=== PATIENT | male | born 1965 | race Two or more races ===

== ENCOUNTER 2017-11-23 18:04 | Inpatient (IN) | payer OTHER, SELFPAY ==
[~2017-11-23] VITALS: Ht 177.8 cm; Wt 144.5 kg
[2017-11-23] MEDS ORDERED: SODIUM CHLORIDE FLUSH 10ML SYR IVF ONE (19:00)
[2017-11-23] MEDS ORDERED: METO-99 PO (19:06)
[2017-11-23] MEDS ORDERED: FURO20TA3 PO (19:06)
[2017-11-23] MEDS ORDERED: PRED20TA PO (19:06)
[2017-11-23] MEDS ORDERED: ENAL20TA PO (19:06)
[2017-11-23 19:07] LABS: INTERNATIONAL NORMALIZED RATIO 1.32 (0.93-1.1); PROTHROMBIN TIME 13.7 Seconds (9.6-11.5)
[2017-11-23 19:13] LABS: TROPONIN I < 0.015 ng/mL (0.000-0.045)
[2017-11-23 19:24] LABS: BASOPHILS # (AUTO) 0.02 x10^3/uL (0-0.1); BASOPHILS % (AUTO) 0 % (0-1); EOSINOPHILS % (AUTO) 0 % (1-7); LYMPHOCYTES # (AUTO) 0.54 x10^3/uL (1-3.4); LYMPHOCYTES % (AUTO) 5 % (22-44); MD SCAN; MEAN CORPUSCULAR HEMOGLOBIN 35.5 pg (27.5-34.5); MEAN CORPUSCULAR HGB CONC 34.7 g/dL (33.2-36.2); MEAN CORPUSCULAR VOLUME 102.2 fL (81-97); MEAN PLATELET VOLUME 9.4 fL (7.4-10.4); MONOCYTES # (AUTO) 0.69 x10^3/uL (0.2-0.8); MONOCYTES % (AUTO) 7 % (2-9); NEUTROPHILS # (AUTO) 9.41 x10^3/uL (1.8-6.8); NEUTROPHILS % (AUTO) 88 % (42-75); PLATELET COUNT 94 x10^3/uL (130-400); RED BLOOD COUNT 4.14 x10^6/uL (4.38-5.82); RED CELL DISTRIBUTION WIDTH 15.7 % (9.4-14.8)
[2017-11-23 20:10] LABS: ALANINE AMINOTRANSFERASE 153 U/L (12-78); ALBUMIN 3.4 g/dL (3.4-5.0); CHLORIDE 78 mmol/L (98-107); CREATININE 1.11 mg/dL (0.7-1.3)
[2017-11-23 20:12] LABS: ALKALINE PHOSPHATASE 124 U/L (45-117); BILIRUBIN,TOTAL 4.2 mg/dL (0.2-1.0); TOTAL PROTEIN 7.8 g/dL (6.4-8.2)
[2017-11-23 20:21] LABS: ANION GAP 19 mmol/L (5-15)
[2017-11-23] MEDS ORDERED: SODIUM CHLORIDE 0.9% 1,000 ML IV ONE ×2 (20:26→20:51)
[2017-11-23] MEDS ORDERED: SODIUM CHLORIDE FLUSH 10ML SYR IVF PRN (21:00)
[2017-11-23] MEDS ORDERED: LORazepam 2 MG/ML, 1ML IVPush ONE (21:00)
[2017-11-23] MEDS ORDERED: LORazepam 2 MG/ML, 1ML ONE (21:05)
[2017-11-23] MEDS ORDERED: SODIUM CHLORIDE 0.9% 1,000 ML IV SCH (21:54)
[2017-11-23] MEDS ORDERED: HEPARIN 5,000 UNITS/ML, 1ML SQ SCH (22:00)
[2017-11-23] MEDS ORDERED: ONDANSETRON 2MG/ML, 2ML IVPush PRN (22:00)
[2017-11-23] MEDS ORDERED: BISACODYL 10 MG SUPP PR PRN (22:00)
[2017-11-23] MEDS ORDERED: POLYETHYLENE GLYCOL 17 GM PACKET PO PRN (22:00)
[2017-11-23 22:50] LABS: FOLATE LEVEL 4.9 ng/mL (3.1-17.5)
[2017-11-23 23:18] VITALS: BP 151/99
[2017-11-24 00:18] LABS: MICROSCOPIC INDICATED
[2017-11-24 00:20] LABS: SODIUM,URINE RANDOM 22 mmol/L
[2017-11-24 00:29] LABS: CULTURE INDICATED? NO
[2017-11-24 00:34] LABS: OSMOLALITY,URINE 385 mOsm/kg (500-850)
[2017-11-24 02:57] LABS: CLOSTRIDIUM DIFFICILE ANTIGEN POSITIVE; CLOSTRIDIUM DIFFICILE TOXIN NEGATIVE (Negative)
[2017-11-24 03:18] LABS: MEAN CORPUSCULAR HGB CONC 34.3 g/dL (33.2-36.2); RED CELL DISTRIBUTION WIDTH 15.8 % (9.4-14.8)
[2017-11-24 04:02] LABS: MEAN PLATELET VOLUME 9.6 fL (7.4-10.4); PLATELET COUNT 98 x10^3/uL (130-400)
[2017-11-24 04:03] LABS: BASOPHILS # (AUTO) 0.02 x10^3/uL (0-0.1); BASOPHILS % (AUTO) 0 % (0-1); EOSINOPHILS % (AUTO) 0 % (1-7); LYMPHOCYTES # (AUTO) 0.74 x10^3/uL (1-3.4); LYMPHOCYTES % (AUTO) 6 % (22-44); MD SCAN; MONOCYTES # (AUTO) 1.03 x10^3/uL (0.2-0.8); MONOCYTES % (AUTO) 9 % (2-9); NEUTROPHILS # (AUTO) 10.07 x10^3/uL (1.8-6.8); NEUTROPHILS % (AUTO) 85 % (42-75)
[2017-11-24] MEDS: GUAIFENESIN/DM 100-10MG, 5ML UDC PO PRN ×4 (04:45→21:41)
[2017-11-24 04:55] VITALS: BP 130/80
[2017-11-24] MEDS: SENNA/DOCUSATE TABLET PO SCH (09:00)
[2017-11-24] MEDS: ENALAPRIL 20MG TABLET PO SCH (09:26)
[2017-11-24] MEDS: metroNIDAZOLE 500 MG TABLET PO SCH ×3 (09:26→21:41)
[2017-11-24 10:17] LABS: ALANINE AMINOTRANSFERASE 151 U/L (12-78); ALBUMIN 3.5 g/dL (3.4-5.0); ANION GAP 17 mmol/L (5-15); CALCIUM 8.2 mg/dL (8.5-10.1); CHLORIDE 79 mmol/L (98-107); CREATININE 1.56 mg/dL (0.7-1.3)
[2017-11-24 10:24] LABS: ALKALINE PHOSPHATASE 120 U/L (45-117); BILIRUBIN,TOTAL 5.4 mg/dL (0.2-1.0); TOTAL PROTEIN 7.6 g/dL (6.4-8.2)
[2017-11-24 13:59] VITALS: BP 148/83
[2017-11-24] MEDS: LORazepam 0.5MG TABLET PO PRN ×2 (15:11→21:41)
[2017-11-24] MEDS: POTASSIUM CHLORIDE 20 MEQ, MAGNESIUM SULFATE 1 GM, THIAMINE 100 MG, FOLIC ACID 1 MG, MV... IV SCH (17:00)
[2017-11-24 18:47] VITALS: BP 161/78
[2017-11-25] MEDS ORDERED: AMOX-291 PO (01:38)
[2017-11-25] MEDS ORDERED: CEPH-368 PO (01:38)
[2017-11-25 04:01] VITALS: BP 133/76
[2017-11-25] MEDS: SODIUM CHLORIDE 0.9% 1,000 ML IV SCH ×3 (04:09→20:00)
[2017-11-25 06:40] LABS: ANION GAP 12 mmol/L (5-15); CALCIUM 8.3 mg/dL (8.5-10.1); CHLORIDE 84 mmol/L (98-107)
[2017-11-25 06:45] LABS: ALANINE AMINOTRANSFERASE 141 U/L (12-78); ALKALINE PHOSPHATASE 105 U/L (45-117); BILIRUBIN,TOTAL 7.6 mg/dL (0.2-1.0); CREATININE 1.26 mg/dL (0.7-1.3); TOTAL PROTEIN 6.8 g/dL (6.4-8.2)
[2017-11-25 06:59] LABS: MEAN CORPUSCULAR HEMOGLOBIN 35.2 pg (27.5-34.5); MEAN CORPUSCULAR HGB CONC 34.4 g/dL (33.2-36.2); MEAN CORPUSCULAR VOLUME 102.2 fL (81-97); MEAN PLATELET VOLUME 10.5 fL (7.4-10.4); PLATELET COUNT 63 x10^3/uL (130-400); RED BLOOD COUNT 3.72 x10^6/uL (4.38-5.82); RED CELL DISTRIBUTION WIDTH 16.1 % (9.4-14.8)
[2017-11-25] MEDS: SENNA/DOCUSATE TABLET PO SCH (07:29)
[2017-11-25 07:36] LABS: BASOPHILS % (AUTO) 0 % (0-1); EOSINOPHILS % (AUTO) 0 % (1-7); LYMPHOCYTES # (AUTO) 0.64 x10^3/uL (1-3.4); LYMPHOCYTES % (AUTO) 7 % (22-44); MD SCAN; MONOCYTES # (AUTO) 0.79 x10^3/uL (0.2-0.8); MONOCYTES % (AUTO) 8 % (2-9); NEUTROPHILS # (AUTO) 8.25 x10^3/uL (1.8-6.8); NEUTROPHILS % (AUTO) 85 % (42-75)
[2017-11-25 07:59] VITALS: BP 130/82
[2017-11-25] MEDS: metroNIDAZOLE 500 MG TABLET PO SCH ×3 (09:21→21:24)
[2017-11-25] MEDS: ENALAPRIL 20MG TABLET PO SCH (09:21)
[2017-11-25 09:36] LABS: INTERNATIONAL NORMALIZED RATIO 1.56 (0.93-1.1); PROTHROMBIN TIME 16.1 Seconds (9.6-11.5)
[2017-11-25 13:00] VITALS: BP 139/80
[2017-11-25] MEDS ORDERED: LORazepam 1MG TABLET ONE (15:30)
[2017-11-25] MEDS: LORazepam 0.5MG TABLET PO PRN (15:32)
[2017-11-25] MEDS: GUAIFENESIN/DM 100-10MG, 5ML UDC PO PRN ×2 (17:03→21:24)
[2017-11-25 20:58] VITALS: BP 149/85
[2017-11-25] MEDS: POTASSIUM CHLORIDE 20 MEQ, MAGNESIUM SULFATE 1 GM, THIAMINE 100 MG, FOLIC ACID 1 MG, MV... IV SCH (21:24)
[2017-11-26] MEDS: LORazepam 0.5MG TABLET PO PRN ×2 (00:33→11:05)
[2017-11-26 02:29] VITALS: BP 156/82
[2017-11-26 05:23] LABS: MEAN CORPUSCULAR HGB CONC 34.8 g/dL (33.2-36.2); MEAN CORPUSCULAR VOLUME 103.5 fL (81-97); RED BLOOD COUNT 3.71 x10^6/uL (4.38-5.82); RED CELL DISTRIBUTION WIDTH 16.3 % (9.4-14.8)
[2017-11-26 05:57] LABS: BASOPHILS # (AUTO) 0.01 x10^3/uL (0-0.1); BASOPHILS % (AUTO) 0 % (0-1); EOSINOPHILS # (AUTO) 0.01 x10^3/uL (0-0.4); EOSINOPHILS % (AUTO) 0 % (1-7); LYMPHOCYTES # (AUTO) 0.32 x10^3/uL (1-3.4); LYMPHOCYTES % (AUTO) 4 % (22-44); MD SCAN; MEAN PLATELET VOLUME 10.2 fL (7.4-10.4); MONOCYTES # (AUTO) 0.83 x10^3/uL (0.2-0.8); MONOCYTES % (AUTO) 10 % (2-9); NEUTROPHILS # (AUTO) 7.28 x10^3/uL (1.8-6.8); NEUTROPHILS % (AUTO) 86 % (42-75); PLATELET COUNT 60 x10^3/uL (130-400)
[2017-11-26] MEDS ORDERED: SODIUM CHLORIDE 0.9% 1,000 ML IV SCH ×2 (06:00→21:54)
[2017-11-26 06:38] LABS: ALANINE AMINOTRANSFERASE 155 U/L (12-78); ALBUMIN 3.2 g/dL (3.4-5.0); ALKALINE PHOSPHATASE 119 U/L (45-117); ANION GAP 10 mmol/L (5-15); BILIRUBIN,TOTAL 9.7 mg/dL (0.2-1.0); CALCIUM 9.1 mg/dL (8.5-10.1); CHLORIDE 87 mmol/L (98-107); CREATININE 1.06 mg/dL (0.7-1.3); TOTAL PROTEIN 6.9 g/dL (6.4-8.2)
[2017-11-26] MEDS: ENALAPRIL 20MG TABLET PO SCH (08:29)
[2017-11-26] MEDS: metroNIDAZOLE 500 MG TABLET PO SCH (08:29)
[2017-11-26 08:31] VITALS: BP 148/82
[2017-11-26] MEDS: ENOXAPARIN 40 MG/0.4 ML SQ SCH (11:05)
[2017-11-26 13:50] VITALS: BP 167/77
[2017-11-26 16:32] LABS: T4 (THYROXINE) 4.3 mcg/dL (4.5-12.1)
[2017-11-26 20:11] VITALS: BP 130/84
[2017-11-26] MEDS: RIFAXIMIN 550 MG TABLET PO SCH (21:31)
[2017-11-26] MEDS: POTASSIUM CHLORIDE 20 MEQ, MAGNESIUM SULFATE 1 GM, THIAMINE 100 MG, FOLIC ACID 1 MG, MV... IV SCH (21:32)
[2017-11-27 01:12] VITALS: BP 149/85
[2017-11-27 05:10] LABS: INTERNATIONAL NORMALIZED RATIO 1.93 (0.93-1.1); PROTHROMBIN TIME 19.8 Seconds (9.6-11.5)
[2017-11-27 05:11] LABS: MEAN CORPUSCULAR HGB CONC 33.5 g/dL (33.2-36.2); MEAN CORPUSCULAR VOLUME 104.5 fL (81-97); MEAN PLATELET VOLUME 9.5 fL (7.4-10.4); PLATELET COUNT 58 x10^3/uL (130-400); RED BLOOD COUNT 3.68 x10^6/uL (4.38-5.82); RED CELL DISTRIBUTION WIDTH 16.5 % (9.4-14.8)
[2017-11-27 05:17] LABS: CHLORIDE 90 mmol/L (98-107)
[2017-11-27 05:25] LABS: ALANINE AMINOTRANSFERASE 145 U/L (12-78); ALKALINE PHOSPHATASE 127 U/L (45-117); ANION GAP 7 mmol/L (5-15); BILIRUBIN,TOTAL 10.2 mg/dL (0.2-1.0); CALCIUM 8.2 mg/dL (8.5-10.1); CREATININE 0.93 mg/dL (0.7-1.3); TOTAL PROTEIN 6.6 g/dL (6.4-8.2)
[2017-11-27 05:31] LABS: BASOPHILS # (AUTO) 0.02 x10^3/uL (0-0.1); BASOPHILS % (AUTO) 0 % (0-1); EOSINOPHILS # (AUTO) 0.05 x10^3/uL (0-0.4); EOSINOPHILS % (AUTO) 1 % (1-7); LYMPHOCYTES # (AUTO) 0.67 x10^3/uL (1-3.4); LYMPHOCYTES % (AUTO) 10 % (22-44); MD SCAN; MONOCYTES # (AUTO) 1.02 x10^3/uL (0.2-0.8); MONOCYTES % (AUTO) 15 % (2-9); NEUTROPHILS # (AUTO) 4.87 x10^3/uL (1.8-6.8); NEUTROPHILS % (AUTO) 73 % (42-75)
[2017-11-27 07:11] VITALS: BP 134/70
[2017-11-27] MEDS: RIFAXIMIN 550 MG TABLET PO SCH ×2 (09:22→20:18)
[2017-11-27] MEDS: FOLIC ACID 1 MG TABLET PO SCH (09:22)
[2017-11-27] MEDS: ENALAPRIL 20MG TABLET PO SCH (09:22)
[2017-11-27] MEDS: THIAMINE 100MG TABLET PO SCH (09:22)
[2017-11-27] MEDS: MULTIVITAMIN 1 TABLET PO SCH (09:22)
[2017-11-27] MEDS: ENOXAPARIN 40 MG/0.4 ML SQ SCH (11:19)
[2017-11-27 14:00] VITALS: BP 122/75
[2017-11-27] MEDS ORDERED: LORazepam 1MG TABLET PO PRN ×4 (15:30)
[2017-11-27] MEDS ORDERED: LORazepam 2 MG/ML, 1ML IV PRN ×5 (15:30)
[2017-11-27] MEDS ORDERED: LORazepam 0.5MG TABLET PO PRN (15:30)
[2017-11-27 20:32] VITALS: BP 137/84
[2017-11-28 01:54] VITALS: BP 122/75
[2017-11-28] MEDS: GUAIFENESIN/DM 100-10MG, 5ML UDC PO PRN ×2 (03:26→20:32)
[2017-11-28 04:44] LABS: MEAN CORPUSCULAR HEMOGLOBIN 35.4 pg (27.5-34.5); MEAN CORPUSCULAR HGB CONC 33.8 g/dL (33.2-36.2); MEAN CORPUSCULAR VOLUME 104.6 fL (81-97); MEAN PLATELET VOLUME 9.5 fL (7.4-10.4); PLATELET COUNT 59 x10^3/uL (130-400); RED BLOOD COUNT 3.79 x10^6/uL (4.38-5.82); RED CELL DISTRIBUTION WIDTH 16.7 % (9.4-14.8)
[2017-11-28 04:55] LABS: BASOPHILS # (AUTO) 0.02 x10^3/uL (0-0.1); BASOPHILS % (AUTO) 0 % (0-1); EOSINOPHILS # (AUTO) 0.09 x10^3/uL (0-0.4); EOSINOPHILS % (AUTO) 1 % (1-7); LYMPHOCYTES # (AUTO) 1.03 x10^3/uL (1-3.4); LYMPHOCYTES % (AUTO) 15 % (22-44); MD SCAN; MONOCYTES # (AUTO) 1.24 x10^3/uL (0.2-0.8); MONOCYTES % (AUTO) 18 % (2-9); NEUTROPHILS # (AUTO) 4.56 x10^3/uL (1.8-6.8); NEUTROPHILS % (AUTO) 66 % (42-75)
[2017-11-28 04:59] LABS: ALANINE AMINOTRANSFERASE 132 U/L (12-78); ALBUMIN 2.7 g/dL (3.4-5.0); ANION GAP 8 mmol/L (5-15); CALCIUM 8.1 mg/dL (8.5-10.1); CHLORIDE 92 mmol/L (98-107); CREATININE 0.83 mg/dL (0.7-1.3)
[2017-11-28 05:01] LABS: ALKALINE PHOSPHATASE 133 U/L (45-117); TOTAL PROTEIN 6.4 g/dL (6.4-8.2)
[2017-11-28] MEDS: LEVOTHYROXINE 25 MCG TABLET PO SCH (05:52)
[2017-11-28 09:14] VITALS: BP 148/92
[2017-11-28] MEDS: MULTIVITAMIN 1 TABLET PO SCH (10:30)
[2017-11-28] MEDS: FOLIC ACID 1 MG TABLET PO SCH (10:30)
[2017-11-28] MEDS: THIAMINE 100MG TABLET PO SCH (10:30)
[2017-11-28] MEDS: RIFAXIMIN 550 MG TABLET PO SCH ×2 (10:30→20:06)
[2017-11-28] MEDS: ENALAPRIL 20MG TABLET PO SCH (10:30)
[2017-11-28] MEDS: ENOXAPARIN 40 MG/0.4 ML SQ SCH (10:33)
[2017-11-28 13:49] VITALS: BP 113/56
[2017-11-28] MEDS ORDERED: PHYTONADIONE 5 MG TABLET PO ONE (16:30)
[2017-11-28] MEDS ORDERED: LIDOCAINE 1%, 20ML ONE (17:46)
[2017-11-28 18:49] VITALS: BP 122/78
[2017-11-28] MEDS: ALBUMIN HUMAN 25% 100 ML IV SCH ×2 (20:06→21:00)
[2017-11-28] MEDS: LACTULOSE 20 GM/30 ML UDC PO SCH (22:18)
[2017-11-28] MEDS: FUROSEMIDE 20 MG/2 ML IV SCH (23:05)
[2017-11-29 00:43] VITALS: BP 141/89
[2017-11-29 05:18] LABS: CHLORIDE 91 mmol/L (98-107)
[2017-11-29 05:24] LABS: ALANINE AMINOTRANSFERASE 111 U/L (12-78); ALBUMIN 2.9 g/dL (3.4-5.0); ALKALINE PHOSPHATASE 129 U/L (45-117); ANION GAP 7 mmol/L (5-15); BILIRUBIN,TOTAL 10.9 mg/dL (0.2-1.0); CREATININE 0.83 mg/dL (0.7-1.3); TOTAL PROTEIN 6.5 g/dL (6.4-8.2)
[2017-11-29] MEDS: LEVOTHYROXINE 25 MCG TABLET PO SCH (06:00)
[2017-11-29 06:18] LABS: MEAN CORPUSCULAR HEMOGLOBIN 35.3 pg (27.5-34.5); MEAN CORPUSCULAR HGB CONC 34.1 g/dL (33.2-36.2); MEAN CORPUSCULAR VOLUME 103.5 fL (81-97); MEAN PLATELET VOLUME 10.6 fL (7.4-10.4); PLATELET COUNT 64 x10^3/uL (130-400); RED BLOOD COUNT 3.86 x10^6/uL (4.38-5.82); RED CELL DISTRIBUTION WIDTH 16.4 % (9.4-14.8)
[2017-11-29 06:21] LABS: BASOPHILS # (AUTO) 0.02 x10^3/uL (0-0.1); BASOPHILS % (AUTO) 0 % (0-1); EOSINOPHILS # (AUTO) 0.11 x10^3/uL (0-0.4); EOSINOPHILS % (AUTO) 2 % (1-7); LYMPHOCYTES # (AUTO) 0.97 x10^3/uL (1-3.4); LYMPHOCYTES % (AUTO) 15 % (22-44); MD SCAN; MONOCYTES % (AUTO) 22 % (2-9); NEUTROPHILS % (AUTO) 60 % (42-75)
[2017-11-29 06:36] VITALS: BP 120/67
[2017-11-29] MEDS ORDERED: POTASSIUM CHLORIDE 20 MEQ TAB.ER.PRT PO ONE (08:00)
[2017-11-29] MEDS ORDERED: SODIUM PHOSPHATE 4 MEQ/ML IV SCH (08:00)
[2017-11-29] MEDS ORDERED: SODIUM PHOSPHATE 30 MMOL in SODIUM CHLORIDE 0.9% 500 ML IV ONE (08:00)
[2017-11-29] MEDS ORDERED: MAGNESIUM SULFATE PMX 2GM/50ML 50 ML IV ONE (08:00)
[2017-11-29] MEDS: ALBUMIN HUMAN 25% 100 ML IV SCH ×2 (08:53→20:20)
[2017-11-29] MEDS: LACTULOSE 20 GM/30 ML UDC PO SCH ×3 (11:22→23:04)
[2017-11-29] MEDS: FOLIC ACID 1 MG TABLET PO SCH (11:22)
[2017-11-29] MEDS: RIFAXIMIN 550 MG TABLET PO SCH ×2 (11:23→20:19)
[2017-11-29] MEDS: MULTIVITAMIN 1 TABLET PO SCH (11:23)
[2017-11-29] MEDS: ENALAPRIL 20MG TABLET PO SCH (11:23)
[2017-11-29] MEDS: ENOXAPARIN 40 MG/0.4 ML SQ SCH (11:23)
[2017-11-29] MEDS: THIAMINE 100MG TABLET PO SCH (11:23)
[2017-11-29] MEDS: FUROSEMIDE 20 MG/2 ML IV SCH ×2 (12:41→23:26)
[2017-11-29 14:46] VITALS: BP 124/65
[2017-11-29] MEDS: METOPROLOL TARTRATE 50 MG TABLET PO SCH (20:18)
[2017-11-29 20:44] VITALS: BP 132/85
[2017-11-30 03:10] VITALS: BP 121/68
[2017-11-30 05:07] LABS: ALANINE AMINOTRANSFERASE 88 U/L (12-78); ANION GAP 9 mmol/L (5-15); CALCIUM 7.7 mg/dL (8.5-10.1); CHLORIDE 92 mmol/L (98-107); CREATININE 0.88 mg/dL (0.7-1.3)
[2017-11-30 05:09] LABS: ALKALINE PHOSPHATASE 121 U/L (45-117); BILIRUBIN,TOTAL 11.6 mg/dL (0.2-1.0); TOTAL PROTEIN 6.5 g/dL (6.4-8.2)
[2017-11-30] MEDS: LEVOTHYROXINE 25 MCG TABLET PO SCH (05:43)
[2017-11-30] MEDS: METOPROLOL TARTRATE 50 MG TABLET PO SCH ×2 (05:43→17:00)
[2017-11-30 06:07] LABS: MEAN CORPUSCULAR HEMOGLOBIN 35.6 pg (27.5-34.5); MEAN CORPUSCULAR HGB CONC 34.2 g/dL (33.2-36.2); MEAN CORPUSCULAR VOLUME 103.9 fL (81-97); PLATELET COUNT 69 x10^3/uL (130-400); RED BLOOD COUNT 3.94 x10^6/uL (4.38-5.82); RED CELL DISTRIBUTION WIDTH 17.1 % (9.4-14.8)
[2017-11-30 06:08] LABS: BASOPHILS # (AUTO) 0.03 x10^3/uL (0-0.1); BASOPHILS % (AUTO) 1 % (0-1); EOSINOPHILS # (AUTO) 0.11 x10^3/uL (0-0.4); EOSINOPHILS % (AUTO) 2 % (1-7); LYMPHOCYTES # (AUTO) 1.11 x10^3/uL (1-3.4); LYMPHOCYTES % (AUTO) 18 % (22-44); MD SCAN; MONOCYTES % (AUTO) 18 % (2-9); NEUTROPHILS # (AUTO) 3.67 x10^3/uL (1.8-6.8); NEUTROPHILS % (AUTO) 61 % (42-75)
[2017-11-30 06:45] VITALS: BP 105/66
[2017-11-30] MEDS ORDERED: SODIUM PHOSPHATE 30 MMOL in SODIUM CHLORIDE 0.9% 500 ML IV ONE ×2 (07:30→19:30)
[2017-11-30] MEDS ORDERED: SODIUM PHOSPHATE 4 MEQ/ML IV SCH ×2 (07:30→14:00)
[2017-11-30] MEDS ORDERED: POTASSIUM CHLORIDE 20 MEQ TAB.ER.PRT PO ONE (07:30)
[2017-11-30] MEDS: ALBUMIN HUMAN 25% 100 ML IV SCH ×2 (07:55→20:31)
[2017-11-30] MEDS: FUROSEMIDE 20 MG/2 ML IV SCH ×2 (10:21→23:46)
[2017-11-30] MEDS: RIFAXIMIN 550 MG TABLET PO SCH ×2 (10:22→20:31)
[2017-11-30] MEDS: LACTULOSE 20 GM/30 ML UDC PO SCH ×3 (10:22→20:31)
[2017-11-30] MEDS: MULTIVITAMIN 1 TABLET PO SCH (10:22)
[2017-11-30] MEDS: SPIRONOLACTONE 100 MG TABLET PO SCH (10:22)
[2017-11-30] MEDS: FOLIC ACID 1 MG TABLET PO SCH (10:22)
[2017-11-30] MEDS: THIAMINE 100MG TABLET PO SCH (10:22)
[2017-11-30] MEDS: ENALAPRIL 20MG TABLET PO SCH (10:22)
[2017-11-30] MEDS: ENOXAPARIN 40 MG/0.4 ML SQ SCH (10:23)
[2017-11-30 13:14] VITALS: BP 114/77
[2017-11-30] MEDS ORDERED: GUAIFENESIN 200 MG TABLET PO SCH (16:30)
[2017-11-30] MEDS: GUAIFENESIN/DM 200-20MG, 10ML UDC PO PRN (17:00)
[2017-11-30] MEDS: GABAPENTIN 100 MG CAPSULE PO SCH ×2 (17:00→20:31)
[2017-11-30] MEDS: NEUTRA PHOS K 250 MG TABLET PO SCH ×2 (17:00→20:31)
[2017-11-30 18:33] VITALS: BP 101/61
[2017-11-30] MEDS: ENOXAPARIN 30 MG/0.3 ML SQ SCH (22:03)
[2017-12-01 01:00] VITALS: BP 111/71
[2017-12-01 05:07] LABS: ALBUMIN 3.2 g/dL (3.4-5.0); ANION GAP 9 mmol/L (5-15); CALCIUM 7.4 mg/dL (8.5-10.1); CHLORIDE 96 mmol/L (98-107)
[2017-12-01 05:11] LABS: ALANINE AMINOTRANSFERASE 71 U/L (12-78); ALKALINE PHOSPHATASE 115 U/L (45-117); BILIRUBIN,TOTAL 11.7 mg/dL (0.2-1.0); CREATININE 0.82 mg/dL (0.7-1.3); TOTAL PROTEIN 6.3 g/dL (6.4-8.2)
[2017-12-01 05:48] LABS: MEAN CORPUSCULAR HEMOGLOBIN 35.6 pg (27.5-34.5); MEAN CORPUSCULAR HGB CONC 34.1 g/dL (33.2-36.2); MEAN CORPUSCULAR VOLUME 104.5 fL (81-97); MEAN PLATELET VOLUME 11.4 fL (7.4-10.4); PLATELET COUNT 87 x10^3/uL (130-400); RED BLOOD COUNT 3.93 x10^6/uL (4.38-5.82); RED CELL DISTRIBUTION WIDTH 17.5 % (9.4-14.8)
[2017-12-01] MEDS: METOPROLOL TARTRATE 50 MG TABLET PO SCH ×2 (05:49→18:20)
[2017-12-01 05:50] LABS: BASOPHILS # (AUTO) 0.02 x10^3/uL (0-0.1); BASOPHILS % (AUTO) 0 % (0-1); EOSINOPHILS # (AUTO) 0.13 x10^3/uL (0-0.4); EOSINOPHILS % (AUTO) 2 % (1-7); LYMPHOCYTES # (AUTO) 1.28 x10^3/uL (1-3.4); LYMPHOCYTES % (AUTO) 18 % (22-44); MD SCAN; MONOCYTES # (AUTO) 1.23 x10^3/uL (0.2-0.8); MONOCYTES % (AUTO) 17 % (2-9); NEUTROPHILS # (AUTO) 4.59 x10^3/uL (1.8-6.8); NEUTROPHILS % (AUTO) 63 % (42-75)
[2017-12-01] MEDS: LEVOTHYROXINE 25 MCG TABLET PO SCH (05:50)
[2017-12-01] MEDS: GUAIFENESIN/DM 200-20MG, 10ML UDC PO PRN (05:58)
[2017-12-01 06:54] VITALS: BP 122/80
[2017-12-01] MEDS: GUAIFENESIN 200 MG TABLET PO SCH ×4 (08:52→20:42)
[2017-12-01] MEDS: FUROSEMIDE 20 MG/2 ML IV SCH ×2 (08:53→16:54)
[2017-12-01] MEDS ORDERED: POTASSIUM CHLORIDE 20 MEQ TAB.ER.PRT PO ONE (09:00)
[2017-12-01] MEDS: LACTULOSE 20 GM/30 ML UDC PO SCH ×3 (10:13→20:41)
[2017-12-01] MEDS: ALBUMIN HUMAN 25% 100 ML IV SCH ×2 (10:13→20:39)
[2017-12-01] MEDS: MULTIVITAMIN 1 TABLET PO SCH (10:14)
[2017-12-01] MEDS: THIAMINE 100MG TABLET PO SCH (10:14)
[2017-12-01] MEDS: SPIRONOLACTONE 100 MG TABLET PO SCH (10:14)
[2017-12-01] MEDS: ENALAPRIL 20MG TABLET PO SCH (10:14)
[2017-12-01] MEDS: FOLIC ACID 1 MG TABLET PO SCH (10:15)
[2017-12-01] MEDS: GABAPENTIN 100 MG CAPSULE PO SCH ×3 (10:15→20:42)
[2017-12-01] MEDS: NEUTRA PHOS K 250 MG TABLET PO SCH ×3 (10:15→20:41)
[2017-12-01] MEDS: ENOXAPARIN 30 MG/0.3 ML SQ SCH ×2 (10:24→20:57)
[2017-12-01] MEDS: RIFAXIMIN 550 MG TABLET PO SCH ×2 (10:27→20:41)
[2017-12-01 12:53] VITALS: BP 121/80
[2017-12-01 18:18] VITALS: BP 128/83
[2017-12-01 19:55] VITALS: BP 122/76
[2017-12-02 01:35] VITALS: BP 125/80
[2017-12-02 05:15] LABS: MEAN CORPUSCULAR HEMOGLOBIN 35.9 pg (27.5-34.5); MEAN CORPUSCULAR HGB CONC 34.1 g/dL (33.2-36.2); RED CELL DISTRIBUTION WIDTH 17.9 % (9.4-14.8)
[2017-12-02 05:17] LABS: CHLORIDE 100 mmol/L (98-107)
[2017-12-02] MEDS: GUAIFENESIN 200 MG TABLET PO SCH ×4 (05:19→20:57)
[2017-12-02] MEDS: LEVOTHYROXINE 25 MCG TABLET PO SCH (05:20)
[2017-12-02] MEDS: METOPROLOL TARTRATE 50 MG TABLET PO SCH ×2 (05:20→17:41)
[2017-12-02 05:25] LABS: ALBUMIN 3.3 g/dL (3.4-5.0); ANION GAP 10 mmol/L (5-15); CALCIUM 7.7 mg/dL (8.5-10.1); CREATININE 0.92 mg/dL (0.7-1.3)
[2017-12-02 05:49] LABS: MEAN PLATELET VOLUME 11.5 fL (7.4-10.4); PLATELET COUNT 98 x10^3/uL (130-400)
[2017-12-02 05:50] LABS: MD YES
[2017-12-02 05:53] LABS: EOS#(MANUAL) 0.08 x10^3/uL (0.0-0.4); EOS% (MANUAL) 1 % (1-7); LYMPH#(MANUAL) 1.26 x10^3/uL (1-3.4); LYMPHS% (MANUAL) 16 % (22-44); MONOS#(MANUAL) 0.71 x10^3/uL (0.3-2.7); MONOS% (MANUAL) 9 % (2-9); SEG#(MANUAL) 5.85 x10^3/uL (1.8-6.8); SEGS% (MANUAL) 74 % (42-75)
[2017-12-02 05:54] LABS: POLYCHROMASIA 1+; TARGET CELLS 2+
[2017-12-02 05:57] LABS: <PLATELET ESTIMATE> DECREASED; LARGE PLATELETS 1+
[2017-12-02 07:20] VITALS: BP 111/68
[2017-12-02] MEDS ORDERED: SODIUM PHOSPHATE 4 MEQ/ML IV SCH ×2 (07:30→16:30)
[2017-12-02] MEDS ORDERED: POTASSIUM CHLORIDE 20 MEQ TAB.ER.PRT PO ONE (07:30)
[2017-12-02] MEDS ORDERED: MAGNESIUM SULFATE PMX 2GM/50ML 50 ML IV ONE (07:30)
[2017-12-02] MEDS: FUROSEMIDE 20 MG/2 ML IV SCH ×2 (08:07→17:40)
[2017-12-02 08:25] LABS: ALBUMIN 3.6 g/dL (3.4-5.0)
[2017-12-02 08:31] LABS: BILIRUBIN, DIRECT 8.3 mg/dL (0.1-0.2); BILIRUBIN,INDIRECT 3.3 mg/dL (0.0-2.0); BILIRUBIN,TOTAL 11.6 mg/dL (0.2-1.0); TOTAL PROTEIN 6.4 g/dL (6.4-8.2)
[2017-12-02] MEDS: LACTULOSE 20 GM/30 ML UDC PO SCH ×3 (10:16→20:57)
[2017-12-02] MEDS: RIFAXIMIN 550 MG TABLET PO SCH ×2 (10:17→20:57)
[2017-12-02] MEDS: ENALAPRIL 20MG TABLET PO SCH (10:17)
[2017-12-02] MEDS: THIAMINE 100MG TABLET PO SCH (10:17)
[2017-12-02] MEDS: SPIRONOLACTONE 100 MG TABLET PO SCH (10:17)
[2017-12-02] MEDS: ENOXAPARIN 30 MG/0.3 ML SQ SCH ×2 (10:17→20:57)
[2017-12-02] MEDS: NEUTRA PHOS K 250 MG TABLET PO SCH ×3 (10:17→20:57)
[2017-12-02] MEDS: MULTIVITAMIN 1 TABLET PO SCH (10:18)
[2017-12-02] MEDS: GABAPENTIN 100 MG CAPSULE PO SCH ×3 (10:18→20:57)
[2017-12-02] MEDS: FOLIC ACID 1 MG TABLET PO SCH (10:18)
[2017-12-02] MEDS: ALBUMIN HUMAN 25% 100 ML IV SCH ×2 (10:41→20:57)
[2017-12-02] MEDS: SODIUM PHOSPHATE 40 MEQ in SODIUM CHLORIDE 0.9% 500 ML IV SCH ×2 (10:41→18:25)
[2017-12-02 14:40] VITALS: BP 124/80
[2017-12-02] MEDS ORDERED: FLU VACC QS2017-18 (36MOS+) UP/PF 0.5 ML IM-VACC ONE (18:30)
[2017-12-02] MEDS ORDERED: SODIUM PHOSPHATE 40 MEQ in SODIUM CHLORIDE 0.9% 500 ML IV ONE (19:00)
[2017-12-02 19:23] VITALS: BP 115/78
[2017-12-03 00:41] VITALS: BP 117/74
[2017-12-03] MEDS: GUAIFENESIN/DM 200-20MG, 10ML UDC PO PRN ×3 (00:46→21:01)
[2017-12-03] MEDS: SODIUM PHOSPHATE 40 MEQ in SODIUM CHLORIDE 0.9% 500 ML IV SCH ×2 (02:11→12:25)
[2017-12-03] MEDS: GUAIFENESIN 200 MG TABLET PO SCH ×4 (04:48→21:00)
[2017-12-03] MEDS: LEVOTHYROXINE 25 MCG TABLET PO SCH (04:48)
[2017-12-03] MEDS: METOPROLOL TARTRATE 50 MG TABLET PO SCH ×2 (04:48→17:33)
[2017-12-03 05:43] LABS: MEAN CORPUSCULAR HEMOGLOBIN 35.3 pg (27.5-34.5); MEAN CORPUSCULAR HGB CONC 33.8 g/dL (33.2-36.2); MEAN CORPUSCULAR VOLUME 104.4 fL (81-97); MEAN PLATELET VOLUME 11.6 fL (7.4-10.4); PLATELET COUNT 118 x10^3/uL (130-400); RED BLOOD COUNT 3.89 x10^6/uL (4.38-5.82); RED CELL DISTRIBUTION WIDTH 18.5 % (9.4-14.8)
[2017-12-03 05:50] LABS: ALBUMIN 3.5 g/dL (3.4-5.0); ANION GAP 8 mmol/L (5-15); CALCIUM 7.7 mg/dL (8.5-10.1); CHLORIDE 102 mmol/L (98-107); CREATININE 0.96 mg/dL (0.7-1.3)
[2017-12-03 06:06] LABS: BASOPHILS # (AUTO) 0.04 x10^3/uL (0-0.1); BASOPHILS % (AUTO) 1 % (0-1); EOSINOPHILS # (AUTO) 0.06 x10^3/uL (0-0.4); EOSINOPHILS % (AUTO) 1 % (1-7); LYMPHOCYTES # (AUTO) 0.98 x10^3/uL (1-3.4); LYMPHOCYTES % (AUTO) 13 % (22-44); MONOCYTES # (AUTO) 0.76 x10^3/uL (0.2-0.8); MONOCYTES % (AUTO) 10 % (2-9); NEUTROPHILS # (AUTO) 5.95 x10^3/uL (1.8-6.8); NEUTROPHILS % (AUTO) 76 % (42-75)
[2017-12-03 06:24] LABS: MD SCAN
[2017-12-03 07:40] VITALS: BP 132/79
[2017-12-03 08:45] LABS: ALANINE AMINOTRANSFERASE 66 U/L (12-78); BILIRUBIN, DIRECT 8.2 mg/dL (0.1-0.2)
[2017-12-03 08:47] LABS: ALKALINE PHOSPHATASE 119 U/L (45-117); BILIRUBIN,INDIRECT 3.8 mg/dL (0.0-2.0); TOTAL PROTEIN 6.5 g/dL (6.4-8.2)
[2017-12-03] MEDS: THIAMINE 100MG TABLET PO SCH (09:24)
[2017-12-03] MEDS: MULTIVITAMIN 1 TABLET PO SCH (09:24)
[2017-12-03] MEDS: RIFAXIMIN 550 MG TABLET PO SCH ×2 (09:24→21:00)
[2017-12-03] MEDS: GABAPENTIN 100 MG CAPSULE PO SCH ×3 (09:24→21:00)
[2017-12-03] MEDS: SPIRONOLACTONE 100 MG TABLET PO SCH (09:24)
[2017-12-03] MEDS: FOLIC ACID 1 MG TABLET PO SCH (09:24)
[2017-12-03] MEDS: NEUTRA PHOS K 250 MG TABLET PO SCH ×3 (09:24→21:00)
[2017-12-03] MEDS: LACTULOSE 20 GM/30 ML UDC PO SCH ×3 (09:25→20:59)
[2017-12-03] MEDS: ENALAPRIL 20MG TABLET PO SCH (09:37)
[2017-12-03] MEDS: ALBUMIN HUMAN 25% 100 ML IV SCH (09:37)
[2017-12-03] MEDS: FUROSEMIDE 20 MG/2 ML IV SCH (11:53)
[2017-12-03] MEDS: ENOXAPARIN 30 MG/0.3 ML SQ SCH ×2 (11:53→23:24)
[2017-12-03 16:43] VITALS: BP 129/87
[2017-12-03 20:25] VITALS: BP 113/75
[2017-12-03] MEDS: FUROSEMIDE 40 MG TABLET PO SCH (21:00)
[2017-12-04 00:41] VITALS: BP 109/74
[2017-12-04 05:01] LABS: ALBUMIN 3.3 g/dL (3.4-5.0); ANION GAP 11 mmol/L (5-15); CALCIUM 7.9 mg/dL (8.5-10.1); CHLORIDE 102 mmol/L (98-107)
[2017-12-04 05:02] LABS: CREATININE 0.75 mg/dL (0.7-1.3)
[2017-12-04] MEDS: LEVOTHYROXINE 25 MCG TABLET PO SCH (06:08)
[2017-12-04] MEDS: METOPROLOL TARTRATE 50 MG TABLET PO SCH (06:09)
[2017-12-04] MEDS: GUAIFENESIN 200 MG TABLET PO SCH (06:09)
[2017-12-04] MEDS ORDERED: LEVO25TA2 PO (07:23)
[2017-12-04] MEDS ORDERED: SPIR100T PO ×2 (07:23→13:02)
[2017-12-04] MEDS ORDERED: RIFA550T4 PO (07:23)
[2017-12-04] MEDS ORDERED: THIA100T6 PO (07:23)
[2017-12-04] MEDS ORDERED: FURO40TA6 PO ×2 (07:23→13:02)
[2017-12-04] MEDS ORDERED: FOLI-17 PO (07:23)
[2017-12-04] MEDS ORDERED: MULT1TAB60 PO (07:23)
[2017-12-04] MEDS ORDERED: LACT20SO13 PO (07:28)
[2017-12-04 08:05] LABS: ALBUMIN 3.2 g/dL (3.4-5.0); BILIRUBIN, DIRECT 6.9 mg/dL (0.1-0.2)
[2017-12-04 08:07] LABS: BILIRUBIN,TOTAL 9.9 mg/dL (0.2-1.0); TOTAL PROTEIN 6.4 g/dL (6.4-8.2)
[2017-12-04] MEDS: SPIRONOLACTONE 100 MG TABLET PO SCH (08:19)
[2017-12-04] MEDS: RIFAXIMIN 550 MG TABLET PO SCH (08:19)
[2017-12-04] MEDS: MULTIVITAMIN 1 TABLET PO SCH (08:19)
[2017-12-04] MEDS: FOLIC ACID 1 MG TABLET PO SCH (08:19)
[2017-12-04] MEDS: GABAPENTIN 100 MG CAPSULE PO SCH (08:19)
[2017-12-04] MEDS: LACTULOSE 20 GM/30 ML UDC PO SCH (08:20)
[2017-12-04] MEDS: THIAMINE 100MG TABLET PO SCH (08:20)
[2017-12-04] MEDS: FUROSEMIDE 40 MG TABLET PO SCH (08:20)
[2017-12-04] MEDS: ENALAPRIL 20MG TABLET PO SCH (08:23)
[2017-12-04] MEDS: NEUTRA PHOS K 250 MG TABLET PO SCH (08:23)
[2017-12-04 09:05] VITALS: BP 112/71
[2017-12-04] MEDS ORDERED: OMNIPAQUE 350 MG/ML, 150 ML BOTTLE ONE (09:29)
== END 2017-12-04 15:00 | disposition home or self-care (01) | DRG 441 ==
LOC: ED 19:36 → EDIP 20:51 → 4WST 22:29
PROVIDERS: ADMIT Internal Medicine; ATTEND Internal Medicine
DX: B17.9 Acute viral hepatitis, unspecified (principal); J18.9 Pneumonia, unspecified organism; J96.10 Chronic respiratory failure, unspecified whether with hypoxia or hypercapnia; D68.59 Other primary thrombophilia; D69.6 Thrombocytopenia, unspecified; E66.01 Morbid (severe) obesity due to excess calories; E87.1 Hypo-osmolality and hyponatremia; Z68.42 Body mass index [BMI] 45.0-49.9, adult; K72.90 Hepatic failure, unspecified without coma; I48.91 Unspecified atrial fibrillation; G62.9 Polyneuropathy, unspecified; D75.89 Other specified diseases of blood and blood-forming organs; E11.9 Type 2 diabetes mellitus without complications; E86.1 Hypovolemia; F10.10 Alcohol abuse, uncomplicated; G47.33 Obstructive sleep apnea (adult) (pediatric); I10 Essential (primary) hypertension; K75.4 Autoimmune hepatitis; K74.60 Unspecified cirrhosis of liver; K76.0 Fatty (change of) liver, not elsewhere classified; Z91.041 Radiographic dye allergy status; Z79.899 Other long term (current) drug therapy; Z23 Encounter for immunization
CPT/HCPCS: 36415; 71045; 74018; 74177; 74181; 76700; 76705; 80048; 80053; 80074; 80076; 81001; 82040; 82140; 82607; 82728; 82746; 82977; 83516; 83540; 83550; 83735; 83880; 83930; 83935; 84100; 84295; 84300; 84436; 84443; 84481; 84484; 85025; 85610; 85730; 86038; 87324; 87493; 90686; 93005; 93306; 93922; 93970; 96374; J1650; J2405; J3411; J3475; J3480; J3490; P9047; Q9967; 29581-50; J1940; J2060; J7030; J7040

== ENCOUNTER 2018-09-20 19:50 | Inpatient (IN) | payer OTHER ==
[~2018-09-20] VITALS: Ht 177.8 cm; Wt 121.5 kg
[~2018-09-20 19:50] MED LIST: AMOX-291 PO; CEPH-368 PO; ENAL20TA PO; FOLI-17 PO; FURO20TA3 PO; FURO40TA6 PO; LACT20SO13 PO; LEVO25TA2 PO; METO-99 PO; MULT1TAB60 PO; PRED20TA PO; RIFA550T4 PO; SPIR100T PO; THIA100T67 PO
[2018-09-20] MEDS ORDERED: ACETAMINOPHEN 325 MG TABLET PO ONE (20:30)
[2018-09-20] MEDS ORDERED: SODIUM CHLORIDE 0.9% 1,000ML IVBOLUS ONE (20:30)
[2018-09-20] MEDS ORDERED: SODIUM CHLORIDE FLUSH 10ML SYR IVF ONE (20:30)
[2018-09-20] MEDS ORDERED: ACETAMINOPHEN 325 MG TABLET ONE (20:33)
[2018-09-20 20:38] LABS: CULTURE INDICATED? YES; MICROSCOPIC INDICATED
[2018-09-20 20:48] LABS: AMPHETAMINE SCREEN, URINE Negative (Negative); BARBITURATE SCREEN, URINE Negative (Negative); BENZODIAZEPINE SCREEN, URINE Negative (Negative); CANNABINOID SCREEN, URINE Negative (Negative); COCAINE SCREEN, URINE Negative (Negative); METHADONE SCREEN, URINE Negative (Negative); OPIATE SCREEN, URINE Negative (Negative)
[2018-09-20 20:49] LABS: INTERNATIONAL NORMALIZED RATIO 1.36 (0.93-1.1); PROTHROMBIN TIME 14.1 Seconds (9.6-11.5)
[2018-09-20 20:54] LABS: RAPID INFLUENZA A Negative (Negative); RAPID INFLUENZA B Negative (Negative)
[2018-09-20 20:55] LABS: MEAN CORPUSCULAR HEMOGLOBIN 36.1 pg (27.5-34.5); MEAN CORPUSCULAR HGB CONC 34.5 g/dL (33.2-36.2); MEAN CORPUSCULAR VOLUME 104.7 fL (81-97); RED BLOOD COUNT 4.37 x10^6/uL (4.38-5.82); RED CELL DISTRIBUTION WIDTH 15.7 % (9.4-14.8)
[2018-09-20 21:08] LABS: BASOPHILS % (AUTO) 0 % (0-1); EOSINOPHILS % (AUTO) 0 % (1-7); LYMPHOCYTES # (AUTO) 0.25 x10^3/uL (1-3.4); LYMPHOCYTES % (AUTO) 2 % (22-44); MD SCAN; MEAN PLATELET VOLUME 9.9 fL (7.4-10.4); MONOCYTES # (AUTO) 1.07 x10^3/uL (0.2-0.8); MONOCYTES % (AUTO) 7 % (2-9); NEUTROPHILS # (AUTO) 15.31 x10^3/uL (1.8-6.8); NEUTROPHILS % (AUTO) 92 % (42-75); PLATELET COUNT 80 x10^3/uL (130-400)
[2018-09-20] MEDS ORDERED: CEFTRIAXONE PMX 1GM/50ML 50 ML ONE (21:13)
[2018-09-20 21:28] LABS: CHLORIDE 104 mmol/L (98-107)
[2018-09-20] MEDS ORDERED: CEFTRIAXONE PMX 1GM/50ML 50 ML IV ONE (21:30)
[2018-09-20 21:32] LABS: ALBUMIN 2.9 g/dL (3.4-5.0); ANION GAP 16 mmol/L (5-15)
[2018-09-20 21:35] LABS: ALANINE AMINOTRANSFERASE 53 U/L (12-78); CREATININE 1.37 mg/dL (0.7-1.3)
[2018-09-20 21:37] LABS: ALKALINE PHOSPHATASE 113 U/L (45-117); BILIRUBIN,TOTAL 2.8 mg/dL (0.2-1.0)
[2018-09-20] MEDS ORDERED: VANCOMYCIN 2,500 MG in SODIUM CHLORIDE 0.9% 500 ML IV ONE (22:00)
[2018-09-20] MEDS ORDERED: VANCOMYCIN PER PHARMACY MC PRN (22:00)
[2018-09-20] MEDS ORDERED: LIDOCAINE-MPF 1%, 5ML ONE (22:38)
[2018-09-21] MEDS ORDERED: POLYETHYLENE GLYCOL 17 GM PACKET PO PRN
[2018-09-21] MEDS ORDERED: LABETALOL 5MG/ML, 20ML IVPush PRN
[2018-09-21] MEDS ORDERED: BISACODYL 10 MG SUPP PR PRN
[2018-09-21] MEDS ORDERED: VANCOMYCIN PER PHARMACY MC PRN
[2018-09-21] MEDS ORDERED: ONDANSETRON 2MG/ML, 2ML IVPush PRN
[2018-09-21 00:28] VITALS: BP 143/89
[2018-09-21 00:52] LABS: FOLATE LEVEL 10.6 ng/mL (3.1-17.5)
[2018-09-21] MEDS: METOPROLOL TARTRATE 100 MG TABLET PO SCH ×3 (01:08→20:19)
[2018-09-21] MEDS: TEMAZEPAM 15 MG CAPSULE PO PRN ×2 (01:08→20:19)
[2018-09-21] MEDS: LACTULOSE 20 GM/30 ML UDC PO SCH ×4 (01:08→20:19)
[2018-09-21] MEDS: SODIUM CHLORIDE 0.9% 1,000 ML IV SCH ×3 (01:08→20:19)
[2018-09-21] MEDS: HEPARIN 5,000 UNITS/ML, 1ML SQ SCH ×3 (01:08→17:47)
[2018-09-21] MEDS: CEFTRIAXONE PMX 1GM/50ML 50 ML IV SCH (01:42)
[2018-09-21] MEDS ORDERED: PHARMACOKINETIC MONITORING MC PRN (02:30)
[2018-09-21] MEDS ORDERED: PHARMACOKINETIC CONSULTATION MC ONE (02:30)
[2018-09-21] MEDS: ACETAMINOPHEN 325 MG TABLET PO PRN ×2 (03:30→18:38)
[2018-09-21 04:48] LABS: MEAN CORPUSCULAR HEMOGLOBIN 35.6 pg (27.5-34.5); MEAN CORPUSCULAR HGB CONC 33.9 g/dL (33.2-36.2); MEAN CORPUSCULAR VOLUME 105.1 fL (81-97); RED BLOOD COUNT 4.07 x10^6/uL (4.38-5.82); RED CELL DISTRIBUTION WIDTH 15.3 % (9.4-14.8)
[2018-09-21 04:54] LABS: ALANINE AMINOTRANSFERASE 58 U/L (12-78); ALBUMIN 2.7 g/dL (3.4-5.0); ANION GAP 9 mmol/L (5-15); CALCIUM 7.5 mg/dL (8.5-10.1); CHLORIDE 103 mmol/L (98-107); CREATININE 1.31 mg/dL (0.7-1.3)
[2018-09-21 04:57] LABS: ALKALINE PHOSPHATASE 85 U/L (45-117); BILIRUBIN,TOTAL 2.1 mg/dL (0.2-1.0); TOTAL PROTEIN 7.5 g/dL (6.4-8.2)
[2018-09-21 05:53] LABS: BASOPHILS % (AUTO) 0 % (0-1); EOSINOPHILS % (AUTO) 0 % (1-7); LYMPHOCYTES # (AUTO) 0.25 x10^3/uL (1-3.4); LYMPHOCYTES % (AUTO) 2 % (22-44); MD SCAN; MEAN PLATELET VOLUME 9.8 fL (7.4-10.4); MONOCYTES # (AUTO) 0.78 x10^3/uL (0.2-0.8); MONOCYTES % (AUTO) 5 % (2-9); NEUTROPHILS # (AUTO) 15.58 x10^3/uL (1.8-6.8); NEUTROPHILS % (AUTO) 94 % (42-75); PLATELET COUNT 66 x10^3/uL (130-400)
[2018-09-21 06:58] VITALS: BP 134/84
[2018-09-21] MEDS ORDERED: LORazepam 2 MG/ML, 1ML IVPush PRN (07:30)
[2018-09-21] MEDS ORDERED: POTASSIUM CHLORIDE 20 MEQ, MAGNESIUM SULFATE 1 GM, THIAMINE 200 MG, FOLIC ACID 1 MG, MV... IV SCH (07:30)
[2018-09-21] MEDS: SENNA/DOCUSATE TABLET PO SCH (08:33)
[2018-09-21 14:10] VITALS: BP 152/80
[2018-09-21] MEDS: VANCOMYCIN 2,400 MG in SODIUM CHLORIDE 0.9% 500 ML IV SCH (16:28)
[2018-09-21 19:25] VITALS: BP 127/79
[2018-09-22 00:47] VITALS: BP 146/89
[2018-09-22] MEDS: CEFTRIAXONE PMX 1GM/50ML 50 ML IV SCH (01:31)
[2018-09-22] MEDS: HEPARIN 5,000 UNITS/ML, 1ML SQ SCH ×3 (01:32→17:15)
[2018-09-22 05:06] LABS: MEAN CORPUSCULAR HEMOGLOBIN 36.2 pg (27.5-34.5); MEAN CORPUSCULAR HGB CONC 34.3 g/dL (33.2-36.2); MEAN CORPUSCULAR VOLUME 105.7 fL (81-97); MEAN PLATELET VOLUME 10.6 fL (7.4-10.4); PLATELET COUNT 64 x10^3/uL (130-400); RED BLOOD COUNT 3.96 x10^6/uL (4.38-5.82); RED CELL DISTRIBUTION WIDTH 15.4 % (9.4-14.8)
[2018-09-22 05:11] LABS: ALANINE AMINOTRANSFERASE 76 U/L (12-78); ALBUMIN 2.5 g/dL (3.4-5.0); ANION GAP 8 mmol/L (5-15); CALCIUM 7.6 mg/dL (8.5-10.1); CHLORIDE 104 mmol/L (98-107); CREATININE 1.07 mg/dL (0.7-1.3)
[2018-09-22 05:13] LABS: ALKALINE PHOSPHATASE 72 U/L (45-117); BILIRUBIN,TOTAL 1.4 mg/dL (0.2-1.0); TOTAL PROTEIN 7.2 g/dL (6.4-8.2)
[2018-09-22] MEDS: SODIUM CHLORIDE 0.9% 1,000 ML IV SCH ×2 (05:15→13:10)
[2018-09-22 05:21] LABS: MD YES
[2018-09-22 05:23] LABS: <PLATELET ESTIMATE> DECREASED; <PLT MORPHOLOGY> NORMAL PLT MORPH; <RBC MORPHOLOGY> NORMAL; BAND#(MANUAL) 1.74 x10^3/uL; BANDS%(MANUAL) 13 % (0-7); LYMPH#(MANUAL) 0.13 x10^3/uL (1-3.4); LYMPHS% (MANUAL) 1 % (22-44); MONOS% (MANUAL) 6 % (2-9); SEG#(MANUAL) 10.72 x10^3/uL (1.8-6.8); SEGS% (MANUAL) 80 % (42-75)
[2018-09-22 06:45] VITALS: BP 126/84
[2018-09-22] MEDS: SENNA/DOCUSATE TABLET PO SCH (09:00)
[2018-09-22] MEDS: LACTULOSE 20 GM/30 ML UDC PO SCH ×3 (09:00→21:00)
[2018-09-22] MEDS: METOPROLOL TARTRATE 100 MG TABLET PO SCH ×2 (09:28→21:00)
[2018-09-22] MEDS: VANCOMYCIN 2,400 MG in SODIUM CHLORIDE 0.9% 500 ML IV SCH (09:28)
[2018-09-22 13:00] VITALS: BP 128/88
[2018-09-22] MEDS: CLINDAMYCIN PMX 900MG/50ML 50 ML IV SCH ×2 (13:11→20:59)
[2018-09-22] MEDS: CEFTRIAXONE PMX 2GM/50ML 50 ML IV SCH (14:07)
[2018-09-22 19:54] VITALS: BP 131/85
[2018-09-22] MEDS: TEMAZEPAM 15 MG CAPSULE PO PRN (21:00)
[2018-09-23 02:00] VITALS: BP 108/70
[2018-09-23] MEDS: HEPARIN 5,000 UNITS/ML, 1ML SQ SCH ×3 (02:00→17:54)
[2018-09-23 04:47] VITALS: BP 117/69
[2018-09-23] MEDS: CLINDAMYCIN PMX 900MG/50ML 50 ML IV SCH ×3 (04:53→21:17)
[2018-09-23 05:30] LABS: MEAN CORPUSCULAR HEMOGLOBIN 35.9 pg (27.5-34.5); MEAN CORPUSCULAR HGB CONC 33.8 g/dL (33.2-36.2); MEAN CORPUSCULAR VOLUME 106.2 fL (81-97); RED BLOOD COUNT 3.73 x10^6/uL (4.38-5.82); RED CELL DISTRIBUTION WIDTH 15.1 % (9.4-14.8)
[2018-09-23 05:35] LABS: CHLORIDE 104 mmol/L (98-107)
[2018-09-23 05:44] LABS: ALANINE AMINOTRANSFERASE 76 U/L (12-78); ALBUMIN 2.5 g/dL (3.4-5.0); ALKALINE PHOSPHATASE 69 U/L (45-117); ANION GAP 8 mmol/L (5-15); BILIRUBIN,TOTAL 1.4 mg/dL (0.2-1.0); CALCIUM 8.2 mg/dL (8.5-10.1); CREATININE 0.96 mg/dL (0.7-1.3); TOTAL PROTEIN 6.8 g/dL (6.4-8.2)
[2018-09-23 06:39] LABS: BASOPHILS # (AUTO) 0.03 x10^3/uL (0-0.1); BASOPHILS % (AUTO) 0 % (0-1); EOSINOPHILS # (AUTO) 0.05 x10^3/uL (0-0.4); EOSINOPHILS % (AUTO) 1 % (1-7); LYMPHOCYTES # (AUTO) 1.06 x10^3/uL (1-3.4); LYMPHOCYTES % (AUTO) 11 % (22-44); MD SCAN; MEAN PLATELET VOLUME 11.2 fL (7.4-10.4); MONOCYTES # (AUTO) 1.15 x10^3/uL (0.2-0.8); MONOCYTES % (AUTO) 12 % (2-9); NEUTROPHILS # (AUTO) 7.11 x10^3/uL (1.8-6.8); NEUTROPHILS % (AUTO) 76 % (42-75); PLATELET COUNT 67 x10^3/uL (130-400)
[2018-09-23 07:03] VITALS: BP 125/90
[2018-09-23] MEDS: LACTULOSE 20 GM/30 ML UDC PO SCH ×3 (09:00→21:17)
[2018-09-23] MEDS: SENNA/DOCUSATE TABLET PO SCH (09:00)
[2018-09-23] MEDS: FOLIC ACID 1 MG TABLET PO SCH (09:00)
[2018-09-23] MEDS: THIAMINE 100MG TABLET PO SCH (09:02)
[2018-09-23] MEDS: METOPROLOL TARTRATE 100 MG TABLET PO SCH ×2 (09:03→21:18)
[2018-09-23 10:17] LABS: FREE T4 (FREE THYROXINE) 1.04 ng/dL (0.76-1.46); THYROID STIMULATING HORMONE 3.99 mIU/L (0.358-3.740)
[2018-09-23] MEDS: CEFTRIAXONE PMX 2GM/50ML 50 ML IV SCH (10:52)
[2018-09-23 12:30] VITALS: BP 140/84
[2018-09-23 20:39] VITALS: BP 129/86
[2018-09-23] MEDS: RIFAXIMIN 550 MG TABLET PO SCH (21:18)
[2018-09-23] MEDS: TEMAZEPAM 15 MG CAPSULE PO PRN (22:58)
[2018-09-24] MEDS: HEPARIN 5,000 UNITS/ML, 1ML SQ SCH ×4 (02:18→20:55)
[2018-09-24 02:51] VITALS: BP 122/82
[2018-09-24] MEDS: CLINDAMYCIN PMX 900MG/50ML 50 ML IV SCH (04:55)
[2018-09-24 05:43] LABS: ALANINE AMINOTRANSFERASE 68 U/L (12-78); ALBUMIN 2.3 g/dL (3.4-5.0); ANION GAP 7 mmol/L (5-15); CALCIUM 7.9 mg/dL (8.5-10.1); CHLORIDE 104 mmol/L (98-107); CREATININE 0.98 mg/dL (0.7-1.3)
[2018-09-24 05:46] LABS: ALKALINE PHOSPHATASE 82 U/L (45-117); BILIRUBIN,TOTAL 1.6 mg/dL (0.2-1.0); TOTAL PROTEIN 6.6 g/dL (6.4-8.2)
[2018-09-24 06:00] LABS: MEAN CORPUSCULAR HEMOGLOBIN 35.8 pg (27.5-34.5); MEAN CORPUSCULAR HGB CONC 33.6 g/dL (33.2-36.2); MEAN CORPUSCULAR VOLUME 106.4 fL (81-97); MEAN PLATELET VOLUME 10.9 fL (7.4-10.4); PLATELET COUNT 73 x10^3/uL (130-400); RED BLOOD COUNT 3.69 x10^6/uL (4.38-5.82); RED CELL DISTRIBUTION WIDTH 15.4 % (9.4-14.8)
[2018-09-24 06:30] LABS: BASOPHILS # (AUTO) 0.03 x10^3/uL (0-0.1); BASOPHILS % (AUTO) 0 % (0-1); EOSINOPHILS # (AUTO) 0.19 x10^3/uL (0-0.4); EOSINOPHILS % (AUTO) 3 % (1-7); LYMPHOCYTES # (AUTO) 1.05 x10^3/uL (1-3.4); LYMPHOCYTES % (AUTO) 14 % (22-44); MD SCAN; MONOCYTES # (AUTO) 1.18 x10^3/uL (0.2-0.8); MONOCYTES % (AUTO) 16 % (2-9); NEUTROPHILS # (AUTO) 4.85 x10^3/uL (1.8-6.8); NEUTROPHILS % (AUTO) 67 % (42-75)
[2018-09-24 08:44] VITALS: BP 133/84
[2018-09-24] MEDS: FOLIC ACID 1 MG TABLET PO SCH (09:00)
[2018-09-24] MEDS: LACTULOSE 20 GM/30 ML UDC PO SCH ×2 (09:00→21:00)
[2018-09-24] MEDS: SENNA/DOCUSATE TABLET PO SCH (09:00)
[2018-09-24] MEDS: THIAMINE 100MG TABLET PO SCH (09:48)
[2018-09-24] MEDS: RIFAXIMIN 550 MG TABLET PO SCH ×3 (09:48→21:00)
[2018-09-24] MEDS: METOPROLOL TARTRATE 100 MG TABLET PO SCH ×2 (09:48→20:55)
[2018-09-24] MEDS: CEFTRIAXONE PMX 2GM/50ML 50 ML IV SCH (11:08)
[2018-09-24] MEDS: SPIRONOLACTONE 25 MG TABLET PO SCH (14:06)
[2018-09-24 14:11] VITALS: BP 118/81
[2018-09-24] MEDS: FUROSEMIDE 40 MG TABLET PO SCH (17:32)
[2018-09-24 19:17] VITALS: BP 131/83
[2018-09-24] MEDS: TEMAZEPAM 15 MG CAPSULE PO PRN (20:58)
[2018-09-25 00:46] VITALS: BP 136/83
[2018-09-25 07:20] VITALS: BP 124/69
[2018-09-25] MEDS: RIFAXIMIN 550 MG TABLET PO SCH (08:38)
[2018-09-25] MEDS: HEPARIN 5,000 UNITS/ML, 1ML SQ SCH ×2 (08:38→18:00)
[2018-09-25] MEDS: SPIRONOLACTONE 25 MG TABLET PO SCH (08:38)
[2018-09-25] MEDS: THIAMINE 100MG TABLET PO SCH (08:38)
[2018-09-25] MEDS: FOLIC ACID 1 MG TABLET PO SCH (08:39)
[2018-09-25] MEDS: METOPROLOL TARTRATE 100 MG TABLET PO SCH (08:39)
[2018-09-25] MEDS: LACTULOSE 20 GM/30 ML UDC PO SCH (08:39)
[2018-09-25] MEDS: SENNA/DOCUSATE TABLET PO SCH (08:39)
[2018-09-25] MEDS: FUROSEMIDE 40 MG TABLET PO SCH ×2 (08:39→18:26)
[2018-09-25] MEDS: CEFTRIAXONE PMX 2GM/50ML 50 ML IV SCH (10:30)
[2018-09-25] MEDS ORDERED: RIFA550T4 PO (10:40)
[2018-09-25] MEDS ORDERED: FURO40TA6 PO (10:40)
[2018-09-25] MEDS ORDERED: LACT20SO13 PO (10:40)
[2018-09-25] MEDS ORDERED: SPIR25TA PO (10:40)
[2018-09-25] MEDS ORDERED: CEFD300C37 PO (10:40)
[2018-09-25] MEDS ORDERED: THIA100T67 PO (10:40)
[2018-09-25] MEDS ORDERED: MULT1TAB60 PO (10:40)
[2018-09-25] MEDS ORDERED: FOLI-17 PO (10:40)
[2018-09-25 14:32] VITALS: BP 146/92
== END 2018-09-25 18:42 | disposition home or self-care (01) | DRG 871 ==
LOC: ED 22:24 → EDIP 23:23 → 3NE 09-21 00:25
PROVIDERS: ADMIT Hospitalist; ATTEND Family Medicine
PROC: 0W9G3ZZ Drainage of Peritoneal Cavity, Percutaneous Approach (ICD-10-PCS; principal; 2018-09-20)
DX: A40.1 Sepsis due to streptococcus, group B (principal); E43 Unspecified severe protein-calorie malnutrition; K65.2 Spontaneous bacterial peritonitis; D68.69 Other thrombophilia; E72.20 Disorder of urea cycle metabolism, unspecified; Z68.41 Body mass index [BMI] 40.0-44.9, adult; D64.9 Anemia, unspecified; D69.6 Thrombocytopenia, unspecified; D75.89 Other specified diseases of blood and blood-forming organs; E11.9 Type 2 diabetes mellitus without complications; E66.01 Morbid (severe) obesity due to excess calories; F10.20 Alcohol dependence, uncomplicated; G47.33 Obstructive sleep apnea (adult) (pediatric); I11.9 Hypertensive heart disease without heart failure; I48.91 Unspecified atrial fibrillation; K70.31 Alcoholic cirrhosis of liver with ascites; K72.90 Hepatic failure, unspecified without coma; R65.20 Severe sepsis without septic shock; Z68.38 Body mass index [BMI] 38.0-38.9, adult
CPT/HCPCS: 36415; 71045; 76700; 80053; 80307; 81001; 82042; 82140; 82607; 82746; 83605; 83615; 84145; 84439; 84443; 85025; 85610; 85730; 87040; 87070; 87077; 87086; 87147; 87181; 87205; 87400; 89051; 93005; 96365; 96375; G0378; J0696; J1644; J2405; J3370; J3411; J3475; J3480; J2060; J7030; J7040

== ENCOUNTER 2019-04-16 11:08 | Emergency (ER) | payer OTHER ==
[~2019-04-16] VITALS: Ht 177.8 cm; Wt 134.1 kg
[~2019-04-16 11:08] MED LIST changes: +CEFD300C37 PO; +SPIR25TA PO
[2019-04-16] MEDS ORDERED: SODIUM CHLORIDE FLUSH 10ML SYR IVF ONE (11:30)
[2019-04-16 11:56] LABS: BASOPHILS # (AUTO) 0.05 x10^3/uL (0-0.1); BASOPHILS % (AUTO) 1 % (0-1); EOSINOPHILS # (AUTO) 0.26 x10^3/uL (0-0.4); EOSINOPHILS % (AUTO) 4 % (1-7); LYMPHOCYTES # (AUTO) 1.66 x10^3/uL (1-3.4); LYMPHOCYTES % (AUTO) 23 % (22-44); MD NO; MEAN CORPUSCULAR HEMOGLOBIN 35.4 pg (27.5-34.5); MEAN CORPUSCULAR HGB CONC 32.6 g/dL (33.2-36.2); MEAN CORPUSCULAR VOLUME 108.6 fL (81-97); MEAN PLATELET VOLUME 8.7 fL (7.4-10.4); MONOCYTES # (AUTO) 0.83 x10^3/uL (0.2-0.8); MONOCYTES % (AUTO) 12 % (2-9); NEUTROPHILS # (AUTO) 4.35 x10^3/uL (1.8-6.8); NEUTROPHILS % (AUTO) 61 % (42-75); PLATELET COUNT 110 x10^3/uL (130-400); RED BLOOD COUNT 4.16 x10^6/uL (4.38-5.82); RED CELL DISTRIBUTION WIDTH 14.5 % (9.4-14.8)
[2019-04-16 12:07] LABS: ALANINE AMINOTRANSFERASE 34 U/L (12-78); ALBUMIN 3.3 g/dL (3.4-5.0); ANION GAP 7 mmol/L (5-15); CALCIUM 8.5 mg/dL (8.5-10.1); CHLORIDE 106 mmol/L (98-107)
[2019-04-16 12:10] LABS: ALKALINE PHOSPHATASE 106 U/L (45-117); BILIRUBIN,TOTAL 1.3 mg/dL (0.2-1.0); CREATININE 0.66 mg/dL (0.7-1.3); TOTAL PROTEIN 8.2 g/dL (6.4-8.2)
--- NOTE | 2019-04-16 12:10 | NUR ---
PT BIB P/V FOR ABD HERNIA AT [facility] FOR A FEW DAYS THAT IS NOW RED WITH SCABS. PT DENIES ANY CONSITPATION OR TROUBLE VOIDING. PT DENIES ANY OTHER MEDICAL COMPLAINT. IV STARTED. PT UPDATED ON POC.
--- NOTE | 2019-04-16 13:01 | NUR ---
PT IN CT.
[2019-04-16] MEDS ORDERED: OMNIPAQUE 350 MG/ML, 100ML BOTTLE ONE (13:12)
--- NOTE | 2019-04-16 13:33 | NUR ---
ASCITIES PRESET ON CT. PT TO HAVE PARACENTESIS.
[2019-04-16] MEDS ORDERED: LIDOCAINE-MPF 1%, 5ML ONE (14:18)
--- NOTE | 2019-04-16 14:25 | NUR ---
PT IN IR.
--- NOTE | 2019-04-16 15:25 | NUR ---
PT BACK FROM IR AND BULGE AT [facility] HAS DEFLATED AFTER PARACENTESIS. PT TO BE DC'D PER DR. SPENCE.
[2019-04-16 15:40] VITALS: BP 138/82
== END 2019-04-16 15:42 | disposition home or self-care (01) ==
LOC: ED 15:36
DX: R18.8 Other ascites (principal); K42.9 Umbilical hernia without obstruction or gangrene; E11.9 Type 2 diabetes mellitus without complications; I11.9 Hypertensive heart disease without heart failure; I48.91 Unspecified atrial fibrillation; Z91.048 Other nonmedicinal substance allergy status; Z79.84 Long term (current) use of oral hypoglycemic drugs; Z72.9 Problem related to lifestyle, unspecified
CPT/HCPCS: 36415; 49083; 74177; 80053; 85025; 99285; Q9967

== ENCOUNTER 2019-12-22 14:16 | Inpatient (IN) | payer MEDICAID ==
[~2019-12-22] VITALS: Ht 177.8 cm; Wt 111.7 kg
--- NOTE | 2019-12-22 15:34 | NUR ---
PROPERTY INSURANCE AGENT: PT AMBULATORY TO ROOM FROM LOBBY
[2019-12-22] MEDS ORDERED: PANTOPRAZOLE 80 MG in SODIUM CHLORIDE 0.9% 50 ML IVPB ONE (15:58)
[2019-12-22] MEDS ORDERED: SODIUM CHLORIDE FLUSH 10ML SYR IVF ONE (16:00)
[2019-12-22] MEDS ORDERED: SODIUM CHLORIDE 0.9% 1,000ML IVBOLUS ONE (16:00)
--- NOTE | 2019-12-22 16:05 | NUR ---
PT AMBULATED TO BR WITHOUT DIFFICULTY.
[2019-12-22 16:46] LABS: BASOPHILS % (AUTO) 0 % (0-1); EOSINOPHILS # (AUTO) 0.13 x10^3/uL (0-0.4); EOSINOPHILS % (AUTO) 1 % (1-7); LYMPHOCYTES # (AUTO) 0.68 x10^3/uL (1-3.4); LYMPHOCYTES % (AUTO) 6 % (22-44); MD NO; MEAN CORPUSCULAR HEMOGLOBIN 35.3 pg (27.5-34.5); MEAN CORPUSCULAR HGB CONC 33.8 g/dL (33.2-36.2); MEAN CORPUSCULAR VOLUME 104.7 fL (81-97); MONOCYTES # (AUTO) 0.93 x10^3/uL (0.2-0.8); MONOCYTES % (AUTO) 8 % (2-9); NEUTROPHILS # (AUTO) 9.73 x10^3/uL (1.8-6.8); NEUTROPHILS % (AUTO) 85 % (42-75); PLATELET COUNT 104 x10^3/uL (130-400); RED BLOOD COUNT 2.97 x10^6/uL (4.38-5.82); RED CELL DISTRIBUTION WIDTH 14.9 % (9.4-14.8)
[2019-12-22 16:47] LABS: ALANINE AMINOTRANSFERASE 49 U/L (12-78); ALBUMIN 3.1 g/dL (3.4-5.0); ANION GAP 7 mmol/L (5-15); CALCIUM 9.2 mg/dL (8.5-10.1); CHLORIDE 109 mmol/L (98-107); CREATININE 0.81 mg/dL (0.7-1.3); INTERNATIONAL NORMALIZED RATIO 1.43 (0.93-1.1); PROTHROMBIN TIME 15.2 Seconds (9.6-11.5)
[2019-12-22 16:49] LABS: ALKALINE PHOSPHATASE 86 U/L (45-117); BILIRUBIN,TOTAL 3.4 mg/dL (0.2-1.0); TOTAL PROTEIN 7.1 g/dL (6.4-8.2)
--- NOTE | 2019-12-22 17:05 | NUR ---
DR RODRÍGUEZ SPOKE WITH DR LAI
[2019-12-22] MEDS: PANTOPRAZOLE 80 MG in SODIUM CHLORIDE 0.9% 100 ML IV SCH ×2 (17:11→19:39)
--- NOTE | 2019-12-22 17:18 | NUR ---
TASK RN: PT MEDICATED PER JAN. NEW SHEETS PROVIDED. PT AMBULATED TO WITH STEADY GAIT, NOW BACK TO [facility]. VITALS CHARTED, NO OTHER NEEDS AT THIS TIME
[2019-12-22] MEDS ORDERED: SODIUM CHLORIDE FLUSH 10ML SYR IVF PRN (18:00)
[2019-12-22] MEDS ORDERED: ONDANSETRON ODT 4 MG PO PRN (18:30)
[2019-12-22] MEDS ORDERED: ACETAMINOPHEN 325 MG TABLET PO PRN (18:30)
[2019-12-22] MEDS ORDERED: POLYETHYLENE GLYCOL 17 GM PACKET PO PRN (18:30)
[2019-12-22] MEDS ORDERED: BISACODYL 10 MG SUPP PR PRN (18:30)
--- NOTE | 2019-12-22 18:58 | NUR ---
PT AMBULATED TO BR WITHOUT DIFFICULTY. TAKEN UPSTAIRS BY CELL TESTER.
[2019-12-22] MEDS ORDERED: OCTREOTIDE 500 MCG in SODIUM CHLORIDE 0.9% 99 ML IV PRN (19:00)
[2019-12-22] MEDS ORDERED: OCTREOTIDE 50 MCG/ML, 1ML (0.05MG/ML) IVPush ONE (19:00)
[2019-12-22] MEDS ORDERED: METOPROLOL TARTRATE 100 MG TAB PO SCH (21:00)
[2019-12-22] MEDS ORDERED: FUROSEMIDE 40 MG TABLET PO SCH (21:00)
[2019-12-22] MEDS ORDERED: THIAMINE 100MG TABLET PO SCH (21:00)
[2019-12-22] MEDS: SODIUM CHLORIDE FLUSH 10ML SYR IVF SCH (21:00)
[2019-12-22] MEDS: CEFTRIAXONE PMX 1GM/50ML 50 ML IV SCH (21:24)
[2019-12-23 00:39] VITALS: BP 126/83
[2019-12-23] MEDS: OCTREOTIDE 500 MCG in SODIUM CHLORIDE 0.9% 99 ML IV SCH ×2 (01:42→21:35)
[2019-12-23] MEDS: PANTOPRAZOLE 80 MG in SODIUM CHLORIDE 0.9% 100 ML IV SCH ×2 (05:17→17:47)
[2019-12-23 06:48] LABS: ANION GAP 5 mmol/L (5-15); CALCIUM 8.5 mg/dL (8.5-10.1); CHLORIDE 109 mmol/L (98-107); CREATININE 0.84 mg/dL (0.7-1.3)
[2019-12-23 06:51] LABS: BASOPHILS # (AUTO) 0.03 x10^3/uL (0-0.1); BASOPHILS % (AUTO) 0 % (0-1); EOSINOPHILS # (AUTO) 0.02 x10^3/uL (0-0.4); EOSINOPHILS % (AUTO) 0 % (1-7); LYMPHOCYTES # (AUTO) 1.21 x10^3/uL (1-3.4); LYMPHOCYTES % (AUTO) 12 % (22-44); MD SCAN; MEAN CORPUSCULAR HEMOGLOBIN 35.5 pg (27.5-34.5); MEAN CORPUSCULAR VOLUME 107.4 fL (81-97); MEAN PLATELET VOLUME 9.4 fL (7.4-10.4); MONOCYTES # (AUTO) 1.31 x10^3/uL (0.2-0.8); MONOCYTES % (AUTO) 13 % (2-9); NEUTROPHILS # (AUTO) 7.54 x10^3/uL (1.8-6.8); NEUTROPHILS % (AUTO) 75 % (42-75); PLATELET COUNT 86 x10^3/uL (130-400); RED BLOOD COUNT 2.33 x10^6/uL (4.38-5.82); RED CELL DISTRIBUTION WIDTH 14.9 % (9.4-14.8)
[2019-12-23 08:02] VITALS: BP 133/78
[2019-12-23] MEDS: SODIUM CHLORIDE FLUSH 10ML SYR IVF SCH ×2 (08:39→21:36)
[2019-12-23] MEDS ORDERED: FOLIC ACID 1 MG TABLET PO SCH (09:00)
[2019-12-23] MEDS ORDERED: SENNA/DOCUSATE TABLET PO SCH (09:00)
[2019-12-23] MEDS ORDERED: MULTIVITAMIN 1 TABLET PO SCH (09:00)
[2019-12-23] MEDS ORDERED: SPIRONOLACTONE 25 MG TABLET PO SCH (09:00)
[2019-12-23] MEDS ORDERED: HYDROmorphone 2 MG/ML, 1ML IVPush PRN (10:00)
[2019-12-23] MEDS ORDERED: FENTANYL PF 100 MCG/2ML IV PRN (10:00)
[2019-12-23] MEDS ORDERED: LORazepam 2 MG/ML, 1ML IVPush PRN (10:00)
[2019-12-23] MEDS ORDERED: MEPERIDINE/PF 25MG/ML,1ML IVPush PRN (10:00)
[2019-12-23] MEDS ORDERED: hydrALAzine 20 MG/ML, 1ML IV PRN (10:00)
[2019-12-23] MEDS ORDERED: LABETALOL 5MG/ML, 20ML IV PRN (10:00)
[2019-12-23] MEDS ORDERED: ONDANSETRON 2MG/ML, 2ML IV PRN (10:00)
[2019-12-23] MEDS ORDERED: OXYcodone 5 MG/5 ML ORAL.SOL UDC PO PRN (10:00)
[2019-12-23] MEDS ORDERED: PROMETHAZINE 25 MG/ML, 1ML IV PRN (10:00)
[2019-12-23] MEDS ORDERED: FENTANYL PF 100 MCG/2ML ONE ×2 (10:02→11:18)
[2019-12-23] MEDS ORDERED: MIDAZOLAM 1 MG/ML, 2ML ONE (10:02)
[2019-12-23] MEDS ORDERED: EPINEPHRINE SYRINGE 0.1 MG/ML, 10ML ONE (10:04)
[2019-12-23 12:20] VITALS: BP 113/67
[2019-12-23] MEDS ORDERED: GADOTERATE 7.5 MMOL/15 ML SYR ONE (13:50)
[2019-12-23 19:27] VITALS: BP 108/72
[2019-12-23] MEDS: CEFTRIAXONE PMX 1GM/50ML 50 ML IV SCH (21:35)
[2019-12-24 00:06] VITALS: BP 115/71
[2019-12-24] MEDS: PANTOPRAZOLE 80 MG in SODIUM CHLORIDE 0.9% 100 ML IV SCH ×2 (04:24→15:30)
[2019-12-24 06:24] LABS: MEAN CORPUSCULAR HEMOGLOBIN 35.7 pg (27.5-34.5); MEAN CORPUSCULAR HGB CONC 33.5 g/dL (33.2-36.2); MEAN CORPUSCULAR VOLUME 106.7 fL (81-97); RED BLOOD COUNT 2.02 x10^6/uL (4.38-5.82); RED CELL DISTRIBUTION WIDTH 14.6 % (9.4-14.8)
[2019-12-24 06:37] LABS: ALBUMIN 2.8 g/dL (3.4-5.0); ANION GAP 8 mmol/L (5-15); CHLORIDE 109 mmol/L (98-107)
[2019-12-24 06:38] LABS: CREATININE 0.73 mg/dL (0.7-1.3)
[2019-12-24 07:02] LABS: BASOPHILS # (AUTO) 0.03 x10^3/uL (0-0.1); BASOPHILS % (AUTO) 1 % (0-1); EOSINOPHILS # (AUTO) 0.09 x10^3/uL (0-0.4); EOSINOPHILS % (AUTO) 1 % (1-7); LYMPHOCYTES # (AUTO) 0.79 x10^3/uL (1-3.4); LYMPHOCYTES % (AUTO) 12 % (22-44); MD SCAN; MEAN PLATELET VOLUME 9.5 fL (7.4-10.4); MONOCYTES # (AUTO) 0.72 x10^3/uL (0.2-0.8); MONOCYTES % (AUTO) 11 % (2-9); NEUTROPHILS # (AUTO) 4.81 x10^3/uL (1.8-6.8); NEUTROPHILS % (AUTO) 75 % (42-75); PLATELET COUNT 71 x10^3/uL (130-400)
[2019-12-24 08:28] VITALS: BP 110/67
[2019-12-24] MEDS ORDERED: LORazepam 0.5MG TABLET PO PRN (08:30)
[2019-12-24] MEDS ORDERED: LORazepam 1MG TABLET PO PRN ×4 (08:30)
[2019-12-24] MEDS ORDERED: LORazepam 2 MG/ML, 1ML IV PRN ×5 (08:30)
[2019-12-24] MEDS ORDERED: CALCIUM GLUCONATE 4.6 MEQ in SODIUM CHLORIDE 0.9% 100 ML IV ONE (09:30)
[2019-12-24] MEDS: PHYTONADIONE 10 MG in SODIUM CHLORIDE 0.9% 50 ML IV SCH (10:03)
[2019-12-24] MEDS: SUCRALFATE 1 GM/10 ML UDC PO SCH ×3 (10:03→21:25)
[2019-12-24] MEDS: SODIUM CHLORIDE FLUSH 10ML SYR IVF SCH ×2 (10:05→21:26)
[2019-12-24 13:09] VITALS: BP 93/59
[2019-12-24] MEDS: CEFTRIAXONE PMX 1GM/50ML 50 ML IV SCH (21:25)
[2019-12-24 21:33] VITALS: BP 123/73
[2019-12-25 00:52] VITALS: BP 121/74
[2019-12-25] MEDS: TRAZODONE 50MG TABLET PO PRN ×2 (00:53→21:06)
[2019-12-25] MEDS: OCTREOTIDE 500 MCG in SODIUM CHLORIDE 0.9% 99 ML IV SCH (01:34)
[2019-12-25] MEDS: PANTOPRAZOLE 80 MG in SODIUM CHLORIDE 0.9% 100 ML IV SCH (01:34)
[2019-12-25 06:27] LABS: ALBUMIN 2.9 g/dL (3.4-5.0); ANION GAP 7 mmol/L (5-15); CALCIUM 7.8 mg/dL (8.5-10.1); CHLORIDE 108 mmol/L (98-107)
[2019-12-25 06:28] LABS: CREATININE 0.73 mg/dL (0.7-1.3); INTERNATIONAL NORMALIZED RATIO 1.35 (0.93-1.1); PROTHROMBIN TIME 14.3 Seconds (9.6-11.5)
[2019-12-25 06:34] LABS: MEAN CORPUSCULAR HEMOGLOBIN 36.2 pg (27.5-34.5); MEAN CORPUSCULAR HGB CONC 33.5 g/dL (33.2-36.2); MEAN CORPUSCULAR VOLUME 108.2 fL (81-97); RED CELL DISTRIBUTION WIDTH 14.3 % (9.4-14.8)
[2019-12-25 06:58] LABS: BASOPHILS # (AUTO) 0.01 x10^3/uL (0-0.1); BASOPHILS % (AUTO) 0 % (0-1); EOSINOPHILS # (AUTO) 0.12 x10^3/uL (0-0.4); EOSINOPHILS % (AUTO) 2 % (1-7); LYMPHOCYTES % (AUTO) 10 % (22-44); MD MORPH REVIEW ONLY; MEAN PLATELET VOLUME 9.7 fL (7.4-10.4); MONOCYTES # (AUTO) 0.47 x10^3/uL (0.2-0.8); MONOCYTES % (AUTO) 9 % (2-9); NEUTROPHILS # (AUTO) 3.97 x10^3/uL (1.8-6.8); NEUTROPHILS % (AUTO) 78 % (42-75); PLATELET COUNT 82 x10^3/uL (130-400)
[2019-12-25 06:59] LABS: <PLATELET ESTIMATE> DECREASED; PAPPENHEIMER BODIES 1+; POLYCHROMASIA 1+
[2019-12-25 07:00] LABS: <PLT MORPHOLOGY> NORMAL PLT MORPH
[2019-12-25] MEDS: SUCRALFATE 1 GM/10 ML UDC PO SCH ×4 (08:09→21:06)
[2019-12-25] MEDS: SODIUM CHLORIDE FLUSH 10ML SYR IVF SCH ×2 (08:09→21:06)
[2019-12-25] MEDS: PHYTONADIONE 10 MG in SODIUM CHLORIDE 0.9% 50 ML IV SCH (09:14)
[2019-12-25 09:32] VITALS: BP 123/68
[2019-12-25] MEDS ORDERED: CALCIUM GLUCONATE 4.6 MEQ/10 ML IVPush ONE (12:00)
[2019-12-25] MEDS ORDERED: CALCIUM GLUCONATE 4.6 MEQ in SODIUM CHLORIDE 0.9% 100 ML IV ONE (12:30)
[2019-12-25 15:23] VITALS: BP 107/69
[2019-12-25] MEDS: GUAIFENESIN 200 MG TABLET PO SCH ×2 (16:58→21:06)
[2019-12-25 18:07] VITALS: BP 104/66
[2019-12-25] MEDS: CEFTRIAXONE PMX 2GM/50ML 50 ML IV SCH (21:06)
[2019-12-25] MEDS: MAGNESIUM OXIDE 400 MG TABLET PO SCH (21:06)
[2019-12-25] MEDS: PANTOPROZOLE 40MG TABLET PO SCH (21:06)
[2019-12-26] VITALS (12 sets, daily range): BP systolic 97–130; BP diastolic 64–78
[2019-12-26 06:16] LABS: MEAN CORPUSCULAR HEMOGLOBIN 36.1 pg (27.5-34.5); MEAN CORPUSCULAR HGB CONC 33.5 g/dL (33.2-36.2); MEAN CORPUSCULAR VOLUME 107.7 fL (81-97); MEAN PLATELET VOLUME 9.2 fL (7.4-10.4); PLATELET COUNT 82 x10^3/uL (130-400); RED BLOOD COUNT 1.95 x10^6/uL (4.38-5.82)
[2019-12-26 06:19] LABS: INTERNATIONAL NORMALIZED RATIO 1.43 (0.93-1.1); PROTHROMBIN TIME 15.2 Seconds (9.6-11.5)
[2019-12-26 06:25] LABS: ALANINE AMINOTRANSFERASE 35 U/L (12-78); ALBUMIN 2.6 g/dL (3.4-5.0); ANION GAP 5 mmol/L (5-15); CALCIUM 7.4 mg/dL (8.5-10.1); CHLORIDE 105 mmol/L (98-107); CREATININE 0.78 mg/dL (0.7-1.3)
[2019-12-26 06:27] LABS: ALKALINE PHOSPHATASE 66 U/L (45-117); BILIRUBIN,TOTAL 2.2 mg/dL (0.2-1.0); TOTAL PROTEIN 5.9 g/dL (6.4-8.2)
[2019-12-26 06:49] LABS: MD YES
[2019-12-26 06:51] LABS: BAND#(MANUAL) 0.09 x10^3/uL; BANDS%(MANUAL) 2 % (0-7); LYMPH#(MANUAL) 0.64 x10^3/uL (1-3.4); LYMPHS% (MANUAL) 14 % (22-44); METAMYELOCYTES# (MANUAL) 0.05 x10^3/uL (0-0); METAMYELOCYTES% (MANUAL) 1 % (0-1); MONOS#(MANUAL) 0.51 x10^3/uL (0.3-2.7); MONOS% (MANUAL) 11 % (2-9); NRBC % (MANUAL) 1 % (0-1); SEG#(MANUAL) 3.31 x10^3/uL (1.8-6.8); SEGS% (MANUAL) 72 % (42-75)
[2019-12-26 06:52] LABS: <PLATELET ESTIMATE> DECREASED; <PLT MORPHOLOGY> NORMAL PLT MORPH; ANISOCYTOSIS 1+; PAPPENHEIMER BODIES 1+; POLYCHROMASIA 1+
[2019-12-26] MEDS: GUAIFENESIN 200 MG TABLET PO SCH ×2 (08:43→21:26)
[2019-12-26] MEDS: MAGNESIUM OXIDE 400 MG TABLET PO SCH ×2 (08:43→21:27)
[2019-12-26] MEDS: PANTOPROZOLE 40MG TABLET PO SCH ×2 (08:43→21:27)
[2019-12-26] MEDS: SUCRALFATE 1 GM/10 ML UDC PO SCH ×4 (08:43→21:29)
[2019-12-26] MEDS: SODIUM CHLORIDE FLUSH 10ML SYR IVF SCH ×2 (08:45→21:30)
[2019-12-26] MEDS: PHYTONADIONE 10 MG in SODIUM CHLORIDE 0.9% 50 ML IV SCH (09:22)
[2019-12-26] MEDS: POTASSIUM CHLORIDE 20 MEQ TAB.ER.PRT PO SCH ×2 (14:26→15:57)
[2019-12-26] MEDS ORDERED: NADOLOL 20 MG TABLET PO SCH (14:30)
[2019-12-26] MEDS: NADOLOL 20 MG TABLET PO SCH (15:57)
[2019-12-26] MEDS ORDERED: DIPHENHYDRAMINE 50 MG/ML, 1ML IVPush ONE ×2 (16:30→20:00)
[2019-12-26] MEDS ORDERED: ACETAMINOPHEN 325 MG TABLET PO ONE ×2 (16:30→20:00)
[2019-12-26] MEDS: CEFTRIAXONE PMX 2GM/50ML 50 ML IV SCH (21:28)
[2019-12-27 00:19] VITALS: BP 92/52
[2019-12-27 01:12] VITALS: BP 103/69
[2019-12-27 01:36] LABS: CULTURE INDICATED? NO; MICROSCOPIC NOT IND
[2019-12-27 02:45] VITALS: BP 99/65
[2019-12-27 06:15] VITALS: BP 107/63
[2019-12-27] MEDS: MAGNESIUM OXIDE 400 MG TABLET PO SCH ×2 (08:17→20:31)
[2019-12-27] MEDS: PANTOPROZOLE 40MG TABLET PO SCH ×2 (08:17→20:31)
[2019-12-27] MEDS: SUCRALFATE 1 GM/10 ML UDC PO SCH ×4 (08:17→20:31)
[2019-12-27] MEDS: GUAIFENESIN 200 MG TABLET PO SCH ×2 (08:17→20:31)
[2019-12-27] MEDS: NADOLOL 20 MG TABLET PO SCH (08:17)
[2019-12-27] MEDS: SODIUM CHLORIDE FLUSH 10ML SYR IVF SCH ×2 (08:17→20:31)
[2019-12-27 10:09] LABS: ANION GAP 5 mmol/L (5-15); CALCIUM 7.3 mg/dL (8.5-10.1); CHLORIDE 107 mmol/L (98-107); CREATININE 0.85 mg/dL (0.7-1.3)
[2019-12-27 12:07] VITALS: BP 109/70
[2019-12-27 19:22] VITALS: BP 114/76
[2019-12-27] MEDS: TRAZODONE 50MG TABLET PO PRN (20:31)
[2019-12-27] MEDS: CEFTRIAXONE PMX 2GM/50ML 50 ML IV SCH (21:09)
[2019-12-28 01:35] VITALS: BP 109/68
[2019-12-28 06:22] LABS: ALBUMIN 2.4 g/dL (3.4-5.0); ANION GAP 5 mmol/L (5-15); CALCIUM 7.2 mg/dL (8.5-10.1); CHLORIDE 106 mmol/L (98-107)
[2019-12-28 06:26] LABS: ALANINE AMINOTRANSFERASE 37 U/L (12-78); ALKALINE PHOSPHATASE 77 U/L (45-117); CREATININE 0.81 mg/dL (0.7-1.3); MEAN CORPUSCULAR HEMOGLOBIN 34.6 pg (27.5-34.5); MEAN CORPUSCULAR HGB CONC 32.9 g/dL (33.2-36.2); MEAN CORPUSCULAR VOLUME 105.2 fL (81-97); MEAN PLATELET VOLUME 10.1 fL (7.4-10.4); PLATELET COUNT 98 x10^3/uL (130-400); RED BLOOD COUNT 2.48 x10^6/uL (4.38-5.82); RED CELL DISTRIBUTION WIDTH 16.7 % (9.4-14.8); TOTAL PROTEIN 5.7 g/dL (6.4-8.2)
[2019-12-28 06:37] VITALS: BP 100/60
[2019-12-28 06:39] LABS: MD YES
[2019-12-28 06:42] LABS: BANDS%(MANUAL) 2 % (0-7); EOS% (MANUAL) 2 % (1-7); LYMPHS% (MANUAL) 18 % (22-44); MONOS% (MANUAL) 16 % (2-9); REACTIVE LYMPHS # (MANUAL) 0.05 x10^3/uL (0-0); REACTIVE LYMPHS % (MANUAL) 1 % (0-0); SEG#(MANUAL) 3.05 x10^3/uL (1.8-6.8); SEGS% (MANUAL) 61 % (42-75)
[2019-12-28 06:44] LABS: ANISOCYTOSIS 1+; PAPPENHEIMER BODIES 1+; POLYCHROMASIA 1+
[2019-12-28 06:46] LABS: <PLATELET ESTIMATE> DECREASED; <PLT MORPHOLOGY> NORMAL PLT MORPH
[2019-12-28] MEDS: SUCRALFATE 1 GM/10 ML UDC PO SCH ×4 (07:50→20:57)
[2019-12-28] MEDS: SODIUM CHLORIDE FLUSH 10ML SYR IVF SCH ×2 (09:57→20:57)
[2019-12-28] MEDS: PANTOPROZOLE 40MG TABLET PO SCH ×2 (09:57→21:13)
[2019-12-28] MEDS: GUAIFENESIN 200 MG TABLET PO SCH ×2 (09:57→20:57)
[2019-12-28] MEDS: MAGNESIUM OXIDE 400 MG TABLET PO SCH ×2 (09:57→20:57)
[2019-12-28] MEDS: NADOLOL 20 MG TABLET PO SCH (09:57)
[2019-12-28 12:05] VITALS: BP 90/55
[2019-12-28 20:02] VITALS: BP 107/66
[2019-12-28] MEDS: CEFTRIAXONE PMX 2GM/50ML 50 ML IV SCH (20:57)
[2019-12-28] MEDS: TRAZODONE 50MG TABLET PO PRN (20:57)
[2019-12-29 00:48] VITALS: BP 112/72
[2019-12-29 06:45] VITALS: BP 116/73
[2019-12-29] MEDS: SODIUM CHLORIDE FLUSH 10ML SYR IVF SCH ×2 (09:00→20:14)
[2019-12-29] MEDS: MAGNESIUM OXIDE 400 MG TABLET PO SCH ×2 (09:07→20:14)
[2019-12-29] MEDS: SUCRALFATE 1 GM/10 ML UDC PO SCH ×4 (09:07→20:13)
[2019-12-29] MEDS: GUAIFENESIN 200 MG TABLET PO SCH ×2 (09:07→20:14)
[2019-12-29] MEDS: NADOLOL 20 MG TABLET PO SCH (09:07)
[2019-12-29] MEDS: PANTOPROZOLE 40MG TABLET PO SCH ×2 (09:07→20:14)
[2019-12-29 12:16] VITALS: BP 110/72
[2019-12-29] MEDS: SPIRONOLACTONE 25 MG TABLET PO SCH (12:34)
[2019-12-29] MEDS: FUROSEMIDE 20 MG TABLET PO SCH (12:34)
[2019-12-29] MEDS ORDERED: LIDOCAINE 1%, 10ML ONE (12:40)
[2019-12-29 13:24] VITALS: BP 118/74
[2019-12-29 19:53] VITALS: BP 115/62
[2019-12-29] MEDS: TRAZODONE 50MG TABLET PO PRN (20:14)
[2019-12-29] MEDS: CEFTRIAXONE PMX 2GM/50ML 50 ML IV SCH (21:06)
[2019-12-30 01:20] VITALS: BP 109/68
[2019-12-30 06:26] LABS: ALBUMIN 2.6 g/dL (3.4-5.0); ANION GAP 3 mmol/L (5-15); CALCIUM 7.9 mg/dL (8.5-10.1); CHLORIDE 108 mmol/L (98-107)
[2019-12-30 06:30] LABS: ALANINE AMINOTRANSFERASE 40 U/L (12-78); ALKALINE PHOSPHATASE 87 U/L (45-117); BILIRUBIN,TOTAL 0.8 mg/dL (0.2-1.0); CREATININE 0.73 mg/dL (0.7-1.3); TOTAL PROTEIN 6.2 g/dL (6.4-8.2)
[2019-12-30 06:32] LABS: BASOPHILS # (AUTO) 0.02 x10^3/uL (0-0.1); BASOPHILS % (AUTO) 0 % (0-1); EOSINOPHILS # (AUTO) 0.15 x10^3/uL (0-0.4); EOSINOPHILS % (AUTO) 3 % (1-7); LYMPHOCYTES # (AUTO) 0.93 x10^3/uL (1-3.4); LYMPHOCYTES % (AUTO) 19 % (22-44); MD NO; MEAN CORPUSCULAR HEMOGLOBIN 34.7 pg (27.5-34.5); MEAN CORPUSCULAR HGB CONC 33.3 g/dL (33.2-36.2); MEAN CORPUSCULAR VOLUME 104.2 fL (81-97); MEAN PLATELET VOLUME 9.7 fL (7.4-10.4); MONOCYTES # (AUTO) 0.72 x10^3/uL (0.2-0.8); MONOCYTES % (AUTO) 15 % (2-9); NEUTROPHILS # (AUTO) 3.11 x10^3/uL (1.8-6.8); NEUTROPHILS % (AUTO) 63 % (42-75); PLATELET COUNT 118 x10^3/uL (130-400); RED CELL DISTRIBUTION WIDTH 17.2 % (9.4-14.8)
[2019-12-30 07:31] VITALS: BP 109/66
[2019-12-30] MEDS: PANTOPROZOLE 40MG TABLET PO SCH (07:57)
[2019-12-30] MEDS: SUCRALFATE 1 GM/10 ML UDC PO SCH ×3 (07:57→16:38)
[2019-12-30] MEDS: GUAIFENESIN 200 MG TABLET PO SCH (08:48)
[2019-12-30] MEDS: MAGNESIUM OXIDE 400 MG TABLET PO SCH (08:48)
[2019-12-30] MEDS: NADOLOL 20 MG TABLET PO SCH (08:48)
[2019-12-30] MEDS: FUROSEMIDE 20 MG TABLET PO SCH (08:48)
[2019-12-30] MEDS: SPIRONOLACTONE 25 MG TABLET PO SCH (08:48)
[2019-12-30] MEDS: SODIUM CHLORIDE FLUSH 10ML SYR IVF SCH (08:49)
[2019-12-30 12:42] VITALS: BP 127/80
[2019-12-30] MEDS ORDERED: SPIR25TA PO (16:35)
[2019-12-30] MEDS ORDERED: SUCR1ORA5 PO (16:35)
[2019-12-30] MEDS ORDERED: FOLI-17 PO (16:35)
[2019-12-30] MEDS ORDERED: MAGN400T50 PO (16:35)
[2019-12-30] MEDS ORDERED: PANT40TA5 PO (16:35)
[2019-12-30] MEDS ORDERED: NADO20TA12 PO (16:35)
[2019-12-30] MEDS ORDERED: THIA100T67 PO (16:35)
[2019-12-30] MEDS ORDERED: FURO40TA6 PO (16:35)
[2019-12-30] MEDS ORDERED: CEFD300C37 PO (16:35)
[2019-12-30] MEDS ORDERED: MULT1TAB60 PO (16:35)
== END 2019-12-30 17:42 | disposition home or self-care (01) | DRG 369 ==
LOC: ED 18:47 → EDIP 19:31 → 4EST 19:33
PROVIDERS: ADMIT Family Medicine; ATTEND Internal Medicine
PROC: 06L38CZ Occlusion of Esophageal Vein with Extraluminal Device, Via Natural or Artificial Opening Endoscopic (ICD-10-PCS; principal; 2019-12-23 10:30)
PROC: 0W9G3ZZ Drainage of Peritoneal Cavity, Percutaneous Approach (ICD-10-PCS; 2019-12-29)
PROC: 30233N1 Transfusion of Nonautologous Red Blood Cells into Peripheral Vein, Percutaneous Approach (ICD-10-PCS; 2019-12-29)
DX: I85.01 Esophageal varices with bleeding (principal); D68.69 Other thrombophilia; I48.20 Chronic atrial fibrillation, unspecified; K76.6 Portal hypertension; R18.8 Other ascites; D53.9 Nutritional anemia, unspecified; D69.6 Thrombocytopenia, unspecified; E11.9 Type 2 diabetes mellitus without complications; E66.9 Obesity, unspecified; Z68.35 Body mass index [BMI] 35.0-35.9, adult; Z88.3 Allergy status to other anti-infective agents; F10.20 Alcohol dependence, uncomplicated; Y90.9 Presence of alcohol in blood, level not specified; G47.33 Obstructive sleep apnea (adult) (pediatric); I11.9 Hypertensive heart disease without heart failure; K31.89 Other diseases of stomach and duodenum; Z79.01 Long term (current) use of anticoagulants; Z79.82 Long term (current) use of aspirin; Z79.899 Other long term (current) drug therapy
CPT/HCPCS: 36415; 96361; 96365; 99285; J3490; 36430; 49083; 70486; 70553; 71045; 76700; 80048; 80053; 80069; 81003; 82105; 82140; 82607; 83690; 83735; 84100; 85014; 85018; 85025; 85610; 85730; 86078; 86704; 86706; 86708; 86803; 86850; 86900; 86923; 87040; 87205; 87340; G0378; J0610; J0696; J2250; J2354; J3010; J3430; A9575; C9113; J1200; J7030; P9016

== ENCOUNTER 2020-12-01 11:17 | Emergency (ER) | payer MEDICAID ==
[~2020-12-01] VITALS: Ht 177.8 cm; Wt 147.0 kg
[~2020-12-01 11:17] MED LIST changes: -ENAL20TA PO; +ENAL20TA9 PO; +MAGN400T50 PO; +MULT-449 PO; -MULT1TAB60 PO; +NADO20TA12 PO; +PANT40TA6 PO; +SUCR1ORA5 PO
--- NOTE | 2020-12-01 12:20 | NUR ---
PIV PLACED, LABS DRAWN AND COLLECTED BY PLATE KEEPER. PT CONNECTED TO MONITORING. CALL LIGHT IN REACH. XRAY COMPLETE.
[2020-12-01] MEDS ORDERED: LIDOCAINE 1%, 10ML ONE (12:21)
[2020-12-01 12:27] LABS: BASOPHILS % (AUTO) 1 % (0-1); EOSINOPHILS % (AUTO) 2 % (1-7); LYMPHOCYTES % (AUTO) 10 % (22-44); MEAN CORPUSCULAR HEMOGLOBIN 34.3 pg (27.5-34.5); MEAN CORPUSCULAR HGB CONC 33.7 g/dL (33.2-36.2); MEAN PLATELET VOLUME 9.1 fL (7.4-10.4); MONOCYTES % (AUTO) 10 % (2-9); NEUTROPHILS % (AUTO) 78 % (42-75); PLATELET COUNT 92 x10^3/uL (130-400); RED BLOOD COUNT 4.07 x10^6/uL (4.38-5.82); RED CELL DISTRIBUTION WIDTH 15.5 % (9.4-14.8)
[2020-12-01 12:28] LABS: INTERNATIONAL NORMALIZED RATIO 1.32 (0.93-1.1); MD NO
[2020-12-01 12:33] LABS: CHLORIDE 105 mmol/L (98-107)
--- NOTE | 2020-12-01 12:37 | NUR ---
IR AT BEDSIDE
[2020-12-01 12:49] LABS: ALANINE AMINOTRANSFERASE 37 U/L (12-78); ALKALINE PHOSPHATASE 123 U/L (45-117); ANION GAP 6 mmol/L (5-15); BILIRUBIN,TOTAL 1.8 mg/dL (0.2-1.0); CALCIUM 8.3 mg/dL (8.5-10.1); CREATININE 0.78 mg/dL (0.7-1.3); TOTAL PROTEIN 8.3 g/dL (6.4-8.2); TROPONIN I < 0.015 ng/mL (0.000-0.045)
--- NOTE | 2020-12-01 13:28 | NUR ---
IR COMPLETE. 12.4L FLUID REMOVED. PT TOLERATED WELL.
--- NOTE | 2020-12-01 13:31 | NUR ---
PT STATES HE DOESN'T TAKE ANY MEDS AT HOME.
--- NOTE | 2020-12-01 14:46 | NUR ---
LAB IS WORKING ON LABS AT THIS TIME. PT STATES HE IS FEELING SO MUCH BETTER, AND READY TO GO HOME. UPDATED PT ON AWAITING LAB RESULTS TO MAKE SURE HE DOESN'T HAVE AN INFECTION.
--- NOTE | 2020-12-01 15:19 | NUR ---
PT AMBULATED TO RESTROOM WITH STEADY GAIT.
--- NOTE | 2020-12-01 15:24 | NUR ---
MD AT BEDSIDE TO UPDATE PT ON POC
[2020-12-01 15:26] VITALS: BP 145/79
== END 2020-12-01 16:51 | disposition home or self-care (01) ==
LOC: ED 12:12
DX: K70.31 Alcoholic cirrhosis of liver with ascites (principal); R07.89 Other chest pain; I44.0 Atrioventricular block, first degree; I48.91 Unspecified atrial fibrillation; I10 Essential (primary) hypertension; E11.9 Type 2 diabetes mellitus without complications
CPT/HCPCS: 36415; 49083; 71045; 80053; 82042; 82140; 83615; 83690; 83880; 84484; 85025; 85610; 85730; 87070; 87205; 89051; 93005; 99285; J3490

== ENCOUNTER 2021-02-26 14:24 | Inpatient (IN) | payer MEDICAID ==
[~2021-02-26] VITALS: Ht 177.8 cm; Wt 139.9 kg
[~2021-02-26 14:24] MED LIST changes: -FOLI-17 PO; +FOLI1TAB32 PO
--- NOTE | 2021-02-26 14:47 | NUR ---
PT HAS HX OF ACITES. CAME IN TODAY CO ABD PAIN AND DISTENTION. PT STATES ABD IS CAUSING SOME SOB. ATTACHED TO ALL MONITORS. PT TACHY. VSS. AWAITING ORDERS.
--- NOTE | 2021-02-26 15:42 | NUR ---
PARACENTESIS X2 WEEKS AGO. 12 L WERE TAKEN OFF. PT REPORTS NO HYPOTENTION AFTER. PT STATES HE'S HAD SEZIUERS WHEN HE ATTEMPTED TO STOP DRINKING. DR. GARRISON TO BEDSIDE FOR EVALUATION. PT BACK FROM BATHROOM WITH STEADY GAIT. PT DID TAKE BELONGINGS TO BATHROOM WHEN HE WENT. PT REPORTING NEW BLACK TARRY STOOL TO DR. GARRISON, IN WHICH DR. GARRISON PREFORMED RECTAL EXAM WITH THIS RN AT BEDSIDE.
--- NOTE | 2021-02-26 15:47 | NUR ---
LAST DRINK 9 AM.
[2021-02-26] MEDS ORDERED: SODIUM CHLORIDE FLUSH 10ML SYR IVF ONE (16:00)
[2021-02-26] MEDS ORDERED: PANTOPRAZOLE 40 MG IV IVPush ONE (16:00)
[2021-02-26] MEDS ORDERED: CEFTRIAXONE 1,000 MG in DEXTROSE 5% 50 ML IVPB ONE (16:00)
[2021-02-26] MEDS ORDERED: LIDOCAINE 1%, 10ML ONE (16:01)
[2021-02-26] MEDS ORDERED: PANTOPRAZOLE 40 MG IV ONE (16:12)
[2021-02-26 16:19] LABS: BASOPHILS % (AUTO) 1 % (0-1); EOSINOPHILS % (AUTO) 1 % (1-7); LYMPHOCYTES % (AUTO) 15 % (22-44); MEAN CORPUSCULAR HGB CONC 33.8 g/dL (33.2-36.2); MEAN PLATELET VOLUME 8.7 fL (7.4-10.4); MONOCYTES % (AUTO) 11 % (2-9); NEUTROPHILS % (AUTO) 72 % (42-75); PLATELET COUNT 113 x10^3/uL (130-400); RED BLOOD COUNT 2.71 x10^6/uL (4.38-5.82); RED CELL DISTRIBUTION WIDTH 15.6 % (9.4-14.8)
[2021-02-26 16:23] LABS: MICROSCOPIC INDICATED
[2021-02-26 16:24] LABS: MD NO
[2021-02-26 16:28] LABS: ALANINE AMINOTRANSFERASE 24 U/L (12-78); ALBUMIN 2.8 g/dL (3.4-5.0); ANION GAP 9 mmol/L (5-15); CALCIUM 8.1 mg/dL (8.5-10.1); CHLORIDE 102 mmol/L (98-107); CREATININE 0.59 mg/dL (0.7-1.3)
[2021-02-26 16:33] LABS: ALKALINE PHOSPHATASE 69 U/L (45-117); BILIRUBIN,TOTAL 1.6 mg/dL (0.2-1.0); TOTAL PROTEIN 7.6 g/dL (6.4-8.2)
[2021-02-26 16:36] LABS: INTERNATIONAL NORMALIZED RATIO 1.28 (0.93-1.1); PROTHROMBIN TIME 13.6 Seconds (9.6-11.5)
[2021-02-26 16:42] LABS: ACETONE, SERUM Negative (Negative)
--- NOTE | 2021-02-26 17:08 | NUR ---
PT BACK FROM [facility]. 11.5 L REMOVED. VSS. NADN.
[2021-02-26] MEDS: PANTOPRAZOLE 80 MG in SODIUM CHLORIDE 0.9% 100 ML IV SCH ×2 (17:10→17:26)
[2021-02-26] MEDS ORDERED: SODIUM CHLORIDE FLUSH 10ML SYR IVF PRN (18:30)
[2021-02-26] MEDS ORDERED: ALBUMIN HUMAN 25% 100 ML IV ONE (18:30)
[2021-02-26] MEDS ORDERED: SODIUM CHLORIDE 0.9% 1,000 ML IV ONE (18:30)
--- NOTE | 2021-02-26 18:48 | NUR ---
report called to Anushka. patient up to bathroom with steady gait before transfer.
[2021-02-26] MEDS ORDERED: ONDANSETRON 2MG/ML, 2ML IVPush PRN (19:00)
[2021-02-26] MEDS ORDERED: BISACODYL 10 MG SUPP PR PRN (19:00)
[2021-02-26] MEDS ORDERED: LORazepam 2 MG/ML, 1ML IVPush PRN (19:00)
[2021-02-26] MEDS ORDERED: OCTREOTIDE 500 MCG in SODIUM CHLORIDE 0.9% 99 ML IV PRN (19:08)
[2021-02-26 19:26] VITALS: BP 112/73
[2021-02-26] MEDS: ALBUMIN HUMAN 25% 100 ML IV SCH ×3 (20:42→23:12)
[2021-02-26 21:38] VITALS: BP 134/76
[2021-02-26] MEDS: PHYTONADIONE 10 MG in SODIUM CHLORIDE 0.9% 50 ML IV SCH (21:59)
[2021-02-26] MEDS ORDERED: TEMAZEPAM 15 MG CAPSULE PO PRN (23:30)
[2021-02-27] MEDS: ALBUMIN HUMAN 25% 100 ML IV SCH (00:24)
[2021-02-27 00:54] VITALS: BP 134/81
[2021-02-27] MEDS: PANTOPRAZOLE 80 MG in SODIUM CHLORIDE 0.9% 100 ML IV SCH ×2 (03:04→13:18)
[2021-02-27 06:09] LABS: ALANINE AMINOTRANSFERASE 20 U/L (12-78); ALBUMIN 3.2 g/dL (3.4-5.0); ANION GAP 6 mmol/L (5-15); CALCIUM 8.1 mg/dL (8.5-10.1); CHLORIDE 106 mmol/L (98-107); CREATININE 0.66 mg/dL (0.7-1.3)
[2021-02-27 06:11] LABS: ALKALINE PHOSPHATASE 48 U/L (45-117); BILIRUBIN,TOTAL 2.4 mg/dL (0.2-1.0); TOTAL PROTEIN 6.6 g/dL (6.4-8.2)
[2021-02-27 06:31] VITALS: BP 114/73
[2021-02-27 06:46] LABS: BASOPHILS % (AUTO) 1 % (0-1); EOSINOPHILS % (AUTO) 2 % (1-7); LYMPHOCYTES % (AUTO) 14 % (22-44); MEAN CORPUSCULAR HEMOGLOBIN 34.5 pg (27.5-34.5); MEAN CORPUSCULAR HGB CONC 33.9 g/dL (33.2-36.2); MEAN PLATELET VOLUME 8.9 fL (7.4-10.4); MONOCYTES % (AUTO) 10 % (2-9); NEUTROPHILS % (AUTO) 73 % (42-75); PLATELET COUNT 76 x10^3/uL (130-400); RED BLOOD COUNT 2.37 x10^6/uL (4.38-5.82); RED CELL DISTRIBUTION WIDTH 14.8 % (9.4-14.8)
[2021-02-27 06:49] LABS: MD NO
[2021-02-27] MEDS ORDERED: FUROSEMIDE 40 MG TABLET PO SCH (09:00)
[2021-02-27] MEDS ORDERED: SPIRONOLACTONE 25 MG TABLET PO SCH (09:00)
[2021-02-27] MEDS ORDERED: LORazepam 2 MG/ML, 1ML IVPush PRN ×2 (09:00→15:00)
[2021-02-27] MEDS: METOPROLOL SUCCINATE 100 MG TAB.ER.24H PO SCH ×2 (09:10→22:54)
[2021-02-27] MEDS ORDERED: CHLORHEXIDINE 15 ML UDC ONE (09:52)
[2021-02-27] MEDS ORDERED: FENTANYL PF 100 MCG/2ML ONE ×2 (10:17→14:24)
[2021-02-27] MEDS ORDERED: MIDAZOLAM 1 MG/ML, 2ML ONE ×2 (10:18→14:24)
[2021-02-27 11:35] VITALS: BP 104/65
[2021-02-27] MEDS ORDERED: PROPOFOL 10 MG/ML, 20ML ONE (14:15)
[2021-02-27] MEDS ORDERED: SUCCINYLCHOLINE 20 MG/ML, 10ML ONE (14:15)
[2021-02-27] MEDS ORDERED: ONDANSETRON 2MG/ML, 2ML ONE (14:15)
[2021-02-27] MEDS ORDERED: ROCURONIUM 10 MG/ML,10ML ONE (14:15)
[2021-02-27] MEDS ORDERED: HYDROmorphone 1 MG/ML, 1ML INJ IVPush PRN (15:00)
[2021-02-27] MEDS ORDERED: LABETALOL 5MG/ML, 20ML IV PRN (15:00)
[2021-02-27] MEDS ORDERED: hydrALAzine 20 MG/ML, 1ML IV PRN (15:00)
[2021-02-27] MEDS ORDERED: HALOPERIDOL 5 MG/ML IV PRN (15:00)
[2021-02-27] MEDS ORDERED: EPHEDRINE 50 MG/ML, 1ML IVPush PRN (15:00)
[2021-02-27] MEDS ORDERED: METOPROLOL 1 MG/ML, 5ML IV PRN (15:00)
[2021-02-27] MEDS ORDERED: METOCLOPRAMIDE 5 MG/ML, 2ML IVPush PRN (15:00)
[2021-02-27] MEDS ORDERED: ONDANSETRON 2MG/ML, 2ML IVPush PRN (15:00)
[2021-02-27] MEDS ORDERED: DIPHENHYDRAMINE 50 MG/ML, 1ML IVPush PRN (15:00)
[2021-02-27] MEDS ORDERED: ALBUTEROL/IPRATROPIUM 2.5MG/0.5MG, 3 ML NPPB PRN (15:00)
[2021-02-27] MEDS ORDERED: OXYcodone 5 MG/5 ML ORAL.SOL UDC PO PRN (15:00)
[2021-02-27] MEDS ORDERED: PROMETHAZINE 25 MG/ML, 1ML IVPush PRN (15:00)
[2021-02-27] MEDS ORDERED: FENTANYL PF 100 MCG/2ML IV PRN (15:00)
[2021-02-27] MEDS ORDERED: OXYcodone 5 MG/5 ML ORAL.SOL UDC ONE (15:24)
[2021-02-27] MEDS: CEFTRIAXONE 2,000 MG in DEXTROSE 5% 50 ML IVPB SCH (15:48)
[2021-02-27] MEDS ORDERED: CEFTRIAXONE 1,000 MG in DEXTROSE 5% 50 ML IVPB SCH (16:00)
[2021-02-27] MEDS: SUCRALFATE 1 GM/10 ML UDC PO SCH ×2 (17:17→22:54)
[2021-02-27] MEDS: PANTOPRAZOLE 40MG TABLET PO SCH (17:18)
[2021-02-27 18:32] VITALS: BP 120/79
[2021-02-27] MEDS ORDERED: HYDROcodone/APAP 5/325 TABLET ONE (22:51)
[2021-02-27] MEDS: PHYTONADIONE 10 MG in SODIUM CHLORIDE 0.9% 50 ML IV SCH (22:55)
[2021-02-28 00:02] VITALS: BP 121/76
[2021-02-28] MEDS: SUCRALFATE 1 GM/10 ML UDC PO SCH ×4 (06:57→21:16)
[2021-02-28 07:14] VITALS: BP 110/71
[2021-02-28] MEDS: METOPROLOL SUCCINATE 100 MG TAB.ER.24H PO SCH ×2 (08:42→21:14)
[2021-02-28] MEDS: PANTOPRAZOLE 40MG TABLET PO SCH ×2 (08:42→15:23)
[2021-02-28] MEDS: CHLORDIAZEPOXIDE 25 MG CAPSULE PO PRN ×2 (08:42→16:50)
[2021-02-28] MEDS ORDERED: LIDOCAINE 1%, 10ML ONE (12:56)
[2021-02-28 13:22] VITALS: BP 91/60
[2021-02-28 15:05] LABS: BASOPHILS % (AUTO) 1 % (0-1); EOSINOPHILS % (AUTO) 3 % (1-7); LYMPHOCYTES % (AUTO) 10 % (22-44); MEAN CORPUSCULAR HEMOGLOBIN 34.2 pg (27.5-34.5); MEAN PLATELET VOLUME 8.6 fL (7.4-10.4); MONOCYTES % (AUTO) 10 % (2-9); NEUTROPHILS % (AUTO) 78 % (42-75); PLATELET COUNT 82 x10^3/uL (130-400); RED BLOOD COUNT 2.43 x10^6/uL (4.38-5.82); RED CELL DISTRIBUTION WIDTH 15.4 % (9.4-14.8)
[2021-02-28 15:07] LABS: MD NO
[2021-02-28 15:10] VITALS: BP 98/63
[2021-02-28 15:14] LABS: ALANINE AMINOTRANSFERASE 22 U/L (12-78); ANION GAP 7 mmol/L (5-15); CALCIUM 8.1 mg/dL (8.5-10.1); CHLORIDE 102 mmol/L (98-107); CREATININE 0.76 mg/dL (0.7-1.3)
[2021-02-28] MEDS ORDERED: ALBUMIN HUMAN 25% 100 ML ONE (15:16)
[2021-02-28] MEDS: ALBUMIN HUMAN 25% 100 ML IV SCH (15:23)
[2021-02-28 15:25] LABS: ALKALINE PHOSPHATASE 52 U/L (45-117); BILIRUBIN,TOTAL 1.7 mg/dL (0.2-1.0)
[2021-02-28 15:31] LABS: INTERNATIONAL NORMALIZED RATIO 1.4 (0.93-1.1); PROTHROMBIN TIME 14.9 Seconds (9.6-11.5)
[2021-02-28] MEDS: CEFTRIAXONE 2,000 MG in DEXTROSE 5% 50 ML IVPB SCH (16:50)
[2021-02-28 19:47] VITALS: BP 97/59
[2021-02-28] MEDS ORDERED: DIPHENHYDRAMINE 50 MG CAPSULE PO PRN (20:30)
[2021-02-28] MEDS ORDERED: DIPHENHYDRAMINE 25 MG CAPSULE ONE (21:12)
[2021-02-28] MEDS: PHYTONADIONE 10 MG in SODIUM CHLORIDE 0.9% 50 ML IV SCH (23:12)
[2021-03-01] MEDS: ALBUMIN HUMAN 25% 100 ML IV SCH ×2 (00:03→06:41)
[2021-03-01 00:39] VITALS: BP 104/65
[2021-03-01] MEDS: CHLORDIAZEPOXIDE 25 MG CAPSULE PO PRN ×3 (00:53→22:20)
[2021-03-01 05:22] LABS: CHLORIDE 102 mmol/L (98-107)
[2021-03-01 05:28] LABS: BASOPHILS % (AUTO) 1 % (0-1); EOSINOPHILS % (AUTO) 3 % (1-7); LYMPHOCYTES % (AUTO) 9 % (22-44); MD NO; MEAN CORPUSCULAR HEMOGLOBIN 34.7 pg (27.5-34.5); MEAN CORPUSCULAR HGB CONC 33.5 g/dL (33.2-36.2); MEAN PLATELET VOLUME 9.1 fL (7.4-10.4); MONOCYTES % (AUTO) 9 % (2-9); NEUTROPHILS % (AUTO) 78 % (42-75); PLATELET COUNT 83 x10^3/uL (130-400); RED BLOOD COUNT 2.33 x10^6/uL (4.38-5.82); RED CELL DISTRIBUTION WIDTH 15.4 % (9.4-14.8)
[2021-03-01 05:30] LABS: ALANINE AMINOTRANSFERASE 18 U/L (12-78); ALBUMIN 3.1 g/dL (3.4-5.0); ALKALINE PHOSPHATASE 46 U/L (45-117); ANION GAP 6 mmol/L (5-15); BILIRUBIN,TOTAL 1.8 mg/dL (0.2-1.0); CALCIUM 8.2 mg/dL (8.5-10.1); TOTAL PROTEIN 6.7 g/dL (6.4-8.2)
[2021-03-01] MEDS ORDERED: PHYTONADIONE 10 MG in SODIUM CHLORIDE 0.9% 50 ML IV ONE (07:30)
[2021-03-01] MEDS ORDERED: PHYTONADIONE 10 MG/ML, 1ML IM ONE (07:30)
[2021-03-01 08:03] VITALS: BP 110/68
[2021-03-01] MEDS: PANTOPRAZOLE 40MG TABLET PO SCH ×2 (09:59→16:18)
[2021-03-01] MEDS: SPIRONOLACTONE 50 MG TABLET PO SCH (09:59)
[2021-03-01] MEDS: LACTULOSE 20 GM/30 ML UDC PO SCH ×3 (09:59→21:08)
[2021-03-01] MEDS: SUCRALFATE 1 GM/10 ML UDC PO SCH ×4 (09:59→21:08)
[2021-03-01] MEDS: FUROSEMIDE 20 MG TABLET PO SCH (10:00)
[2021-03-01] MEDS: METOPROLOL SUCCINATE 100 MG TAB.ER.24H PO SCH ×2 (10:05→21:08)
[2021-03-01] MEDS: OCTREOTIDE 500 MCG in SODIUM CHLORIDE 0.9% 99 ML IV PRN (11:43)
[2021-03-01] MEDS ORDERED: HYDROcodone/APAP 10/325 MG TABLET ONE (11:59)
[2021-03-01 12:13] VITALS: BP 102/66
[2021-03-01 13:41] LABS: ANA SCREEN NEGATIVE (Negative)
[2021-03-01] MEDS: CEFTRIAXONE 2,000 MG in DEXTROSE 5% 50 ML IVPB SCH (16:24)
[2021-03-01 19:33] VITALS: BP 121/79
[2021-03-02 01:40] VITALS: BP 126/74
[2021-03-02 04:44] LABS: BASOPHILS % (AUTO) 1 % (0-1); EOSINOPHILS % (AUTO) 3 % (1-7); LYMPHOCYTES % (AUTO) 10 % (22-44); MEAN CORPUSCULAR HEMOGLOBIN 34.6 pg (27.5-34.5); MEAN CORPUSCULAR HGB CONC 33.5 g/dL (33.2-36.2); MEAN PLATELET VOLUME 8.7 fL (7.4-10.4); MONOCYTES % (AUTO) 15 % (2-9); NEUTROPHILS % (AUTO) 72 % (42-75); PLATELET COUNT 94 x10^3/uL (130-400); RED BLOOD COUNT 2.51 x10^6/uL (4.38-5.82)
[2021-03-02 04:51] LABS: ALBUMIN 3.3 g/dL (3.4-5.0); ANION GAP 5 mmol/L (5-15); CALCIUM 8.3 mg/dL (8.5-10.1); CHLORIDE 100 mmol/L (98-107)
[2021-03-02 04:54] LABS: ALANINE AMINOTRANSFERASE 23 U/L (12-78); ALKALINE PHOSPHATASE 52 U/L (45-117); CREATININE 0.72 mg/dL (0.7-1.3); TOTAL PROTEIN 6.9 g/dL (6.4-8.2)
[2021-03-02 05:55] LABS: MD SCAN
[2021-03-02] MEDS: SUCRALFATE 1 GM/10 ML UDC PO SCH ×4 (06:04→21:43)
[2021-03-02 06:51] VITALS: BP 112/67
[2021-03-02] MEDS: PANTOPRAZOLE 40MG TABLET PO SCH ×2 (08:01→15:41)
[2021-03-02] MEDS: LACTULOSE 20 GM/30 ML UDC PO SCH ×3 (08:01→21:43)
[2021-03-02] MEDS: METOPROLOL SUCCINATE 100 MG TAB.ER.24H PO SCH ×2 (08:02→21:43)
[2021-03-02] MEDS: FUROSEMIDE 20 MG TABLET PO SCH (08:02)
[2021-03-02] MEDS: SPIRONOLACTONE 50 MG TABLET PO SCH (08:09)
[2021-03-02] MEDS ORDERED: PHYTONADIONE 10 MG/ML, 1ML IV ONE (09:00)
[2021-03-02] MEDS: OCTREOTIDE 500 MCG in SODIUM CHLORIDE 0.9% 99 ML IV PRN (09:22)
[2021-03-02 12:20] VITALS: BP 133/69
[2021-03-02] MEDS: CYCLOBENZAPRINE 10 MG TABLET PO PRN (15:45)
[2021-03-02] MEDS: CEFTRIAXONE 2,000 MG in DEXTROSE 5% 50 ML IVPB SCH (16:39)
[2021-03-02 18:34] VITALS: BP 142/81
[2021-03-03 00:02] VITALS: BP 138/83
[2021-03-03 05:13] LABS: BASOPHILS % (AUTO) 0 % (0-1); EOSINOPHILS % (AUTO) 0 % (1-7); LYMPHOCYTES % (AUTO) 7 % (22-44); MEAN CORPUSCULAR HEMOGLOBIN 34.8 pg (27.5-34.5); MEAN PLATELET VOLUME 9.1 fL (7.4-10.4); MONOCYTES % (AUTO) 11 % (2-9); NEUTROPHILS % (AUTO) 81 % (42-75); PLATELET COUNT 112 x10^3/uL (130-400); RED BLOOD COUNT 2.75 x10^6/uL (4.38-5.82); RED CELL DISTRIBUTION WIDTH 14.8 % (9.4-14.8)
[2021-03-03 05:16] LABS: MD NO
[2021-03-03 05:20] LABS: ALBUMIN 3.2 g/dL (3.4-5.0); ANION GAP 4 mmol/L (5-15); CALCIUM 8.4 mg/dL (8.5-10.1); CHLORIDE 100 mmol/L (98-107)
[2021-03-03 05:24] LABS: ALANINE AMINOTRANSFERASE 20 U/L (12-78); ALKALINE PHOSPHATASE 54 U/L (45-117); CREATININE 0.77 mg/dL (0.7-1.3); TOTAL PROTEIN 7.6 g/dL (6.4-8.2)
[2021-03-03] MEDS: SUCRALFATE 1 GM/10 ML UDC PO SCH ×2 (06:27→12:22)
[2021-03-03] MEDS: PANTOPRAZOLE 40MG TABLET PO SCH (06:27)
[2021-03-03 07:10] VITALS: BP 127/74
[2021-03-03] MEDS: METOPROLOL SUCCINATE 100 MG TAB.ER.24H PO SCH (08:46)
[2021-03-03] MEDS: SPIRONOLACTONE 50 MG TABLET PO SCH (08:46)
[2021-03-03] MEDS: LACTULOSE 20 GM/30 ML UDC PO SCH (08:46)
[2021-03-03] MEDS: FUROSEMIDE 20 MG TABLET PO SCH (08:46)
[2021-03-03] MEDS: CYCLOBENZAPRINE 10 MG TABLET PO PRN (09:02)
[2021-03-03] MEDS ORDERED: METO-95 PO (12:11)
[2021-03-03] MEDS ORDERED: LACT20SO13 PO (12:11)
[2021-03-03] MEDS ORDERED: SPIR50TA PO (12:11)
[2021-03-03] MEDS ORDERED: FURO20TA3 PO (12:11)
[2021-03-03] MEDS ORDERED: SUCR1TAB33 PO (12:11)
[2021-03-03] MEDS ORDERED: PANT40TA6 PO (12:11)
[2021-03-03] MEDS ORDERED: PRED20TA PO (12:11)
[2021-03-03] MEDS ORDERED: CEFD300C37 PO (12:13)
[2021-03-03] MEDS ORDERED: THIA100T27 PO (12:13)
[2021-03-03 12:23] VITALS: BP 127/81
== END 2021-03-03 13:55 | disposition home or self-care (01) | DRG 432 ==
LOC: ED 16:48 → EDIP 18:04 → 4WST 19:04 → DCLOUNGE 03-03 13:42
PROVIDERS: ADMIT Emergency Medicine; ATTEND Hospitalist
PROC: 0W9G3ZZ Drainage of Peritoneal Cavity, Percutaneous Approach (ICD-10-PCS; 2021-02-26)
PROC: 06L38CZ Occlusion of Esophageal Vein with Extraluminal Device, Via Natural or Artificial Opening Endoscopic (ICD-10-PCS; principal; 2021-02-27 08:30)
DX: K70.31 Alcoholic cirrhosis of liver with ascites (principal); I85.11 Secondary esophageal varices with bleeding; D62 Acute posthemorrhagic anemia; D68.9 Coagulation defect, unspecified; E87.1 Hypo-osmolality and hyponatremia; F10.239 Alcohol dependence with withdrawal, unspecified; I48.20 Chronic atrial fibrillation, unspecified; K76.6 Portal hypertension; D69.6 Thrombocytopenia, unspecified; D75.89 Other specified diseases of blood and blood-forming organs; I10 Essential (primary) hypertension; K42.9 Umbilical hernia without obstruction or gangrene; G47.33 Obstructive sleep apnea (adult) (pediatric); Z20.822 Contact with and (suspected) exposure to COVID-19; Z79.899 Other long term (current) drug therapy
CPT/HCPCS: 36415; 82042; 82150; 82945; 89051; 96365; 96375; 99291; J3490; 49083; 71045; 76700; 80053; 80320; 81001; 82010; 82140; 82390; 82784; 83516; 83615; 83690; 83735; 83880; 84100; 84157; 84443; 85025; 85610; 85730; 86038; 86704; 86706; 86708; 86709; 86803; 86850; 86900; 87070; 87205; 87340; 87635; 88112; 88305; 93005; G0378; J0696; J2250; J2354; J2405; J2704; J3010; J3430; P9047; C9113; G0480; J0330; J2060; J7030; J7512

== ENCOUNTER 2021-05-22 00:31 | Inpatient (IN) | payer MEDICAID ==
[2021-05-22] VITALS (11 sets, daily range): BP systolic 123–137; BP diastolic 74–87
[~2021-05-22] VITALS: Ht 177.8 cm; Wt 126.9 kg
[~2021-05-22 00:31] MED LIST changes: +METO-95 PO; +SPIR50TA PO; +SUCR1TAB33 PO; +THIA100T27 PO
--- NOTE | 2021-05-22 01:47 | NUR ---
barrel maker note: Pt to room from lobby, ambulatory with steady gait.
[2021-05-22] MEDS ORDERED: SODIUM CHLORIDE 0.9% 1,000ML IVBOLUS ONE (02:30)
[2021-05-22] MEDS ORDERED: SODIUM CHLORIDE FLUSH 10ML SYR IVF ONE (02:30)
[2021-05-22] MEDS ORDERED: PANTOPRAZOLE 80 MG in SODIUM CHLORIDE 0.9% 50 ML IVPB ONE (02:30)
[2021-05-22] MEDS: PANTOPRAZOLE 80 MG in SODIUM CHLORIDE 0.9% 100 ML IV SCH ×3 (02:41→23:20)
[2021-05-22 02:45] LABS: BASOPHILS % (AUTO) 0 % (0-1); EOSINOPHILS % (AUTO) 1 % (1-7); LYMPHOCYTES % (AUTO) 11 % (22-44); MEAN CORPUSCULAR HEMOGLOBIN 25.8 pg (27.5-34.5); MEAN CORPUSCULAR HGB CONC 32.1 g/dL (33.2-36.2); MEAN PLATELET VOLUME 8.2 fL (7.4-10.4); MONOCYTES % (AUTO) 12 % (2-9); NEUTROPHILS % (AUTO) 76 % (42-75); PLATELET COUNT 122 x10^3/uL (130-400); RED BLOOD COUNT 2.68 x10^6/uL (4.38-5.82); RED CELL DISTRIBUTION WIDTH 22.7 % (9.4-14.8)
[2021-05-22 02:55] LABS: ALANINE AMINOTRANSFERASE 23 U/L (12-78); ALBUMIN 2.7 g/dL (3.4-5.0); ANION GAP 9 mmol/L (5-15); CALCIUM 8.1 mg/dL (8.5-10.1); CHLORIDE 104 mmol/L (98-107); CREATININE 0.57 mg/dL (0.7-1.3)
[2021-05-22 02:57] LABS: ALKALINE PHOSPHATASE 70 U/L (45-117); BILIRUBIN,TOTAL 1.5 mg/dL (0.2-1.0); TOTAL PROTEIN 6.9 g/dL (6.4-8.2)
[2021-05-22 02:59] LABS: INTERNATIONAL NORMALIZED RATIO 1.51 (0.93-1.1); PROTHROMBIN TIME 15.8 Seconds (9.6-11.5)
[2021-05-22 03:04] LABS: ANISOCYTOSIS 1+
[2021-05-22 03:05] LABS: OVALOCYTES 1+
[2021-05-22 03:07] LABS: <PLATELET ESTIMATE> DECREASED; <PLT MORPHOLOGY> NORMAL PLT MORPH; POLYCHROMASIA 1+
[2021-05-22] MEDS ORDERED: ONDANSETRON 2MG/ML, 2ML ONE (03:15)
[2021-05-22] MEDS: OCTREOTIDE 500 MCG in SODIUM CHLORIDE 0.9% 99 ML IV SCH ×2 (03:17→22:39)
[2021-05-22] MEDS ORDERED: ACETAMINOPHEN 325 MG TABLET PO ONE (03:30)
[2021-05-22] MEDS ORDERED: ONDANSETRON 2MG/ML, 2ML IVPush ONE (03:30)
[2021-05-22] MEDS ORDERED: ACETAMINOPHEN 650 MG SUPP PR PRN (03:30)
--- NOTE | 2021-05-22 04:05 | NUR ---
pt restingi n bed with no complaints, states that he is not taking any of his home meds currently, and has been out for some time. vss, blood started
[2021-05-22 05:45] LABS: CHLORIDE 104 mmol/L (98-107)
[2021-05-22 05:51] LABS: ALANINE AMINOTRANSFERASE 23 U/L (12-78); ALBUMIN 2.7 g/dL (3.4-5.0); ALKALINE PHOSPHATASE 69 U/L (45-117); ANION GAP 8 mmol/L (5-15); BILIRUBIN,TOTAL 1.8 mg/dL (0.2-1.0); CREATININE 0.55 mg/dL (0.7-1.3); TOTAL PROTEIN 6.8 g/dL (6.4-8.2)
[2021-05-22 05:56] LABS: INTERNATIONAL NORMALIZED RATIO 1.45 (0.93-1.1); PROTHROMBIN TIME 15.2 Seconds (9.6-11.5)
[2021-05-22] MEDS: CEFTRIAXONE 2 GM in DEXTROSE 5% 50 ML IVPB SCH (08:44)
[2021-05-22] MEDS: PHYTONADIONE 10 MG/ML, 1ML SQ SCH (10:08)
[2021-05-22] MEDS ORDERED: LIDOCAINE 1%, 20ML ONE (13:59)
[2021-05-22] MEDS: ALBUMIN HUMAN 25% 100 ML IV SCH ×2 (16:09→22:04)
[2021-05-23 01:33] VITALS: BP 104/69
[2021-05-23] MEDS: OCTREOTIDE 500 MCG in SODIUM CHLORIDE 0.9% 99 ML IV SCH (02:54)
[2021-05-23] MEDS: ALBUMIN HUMAN 25% 100 ML IV SCH ×2 (04:38→09:57)
[2021-05-23 05:15] LABS: BASOPHILS % (AUTO) 0 % (0-1); EOSINOPHILS % (AUTO) 4 % (1-7); LYMPHOCYTES % (AUTO) 14 % (22-44); MEAN CORPUSCULAR HEMOGLOBIN 27.5 pg (27.5-34.5); MEAN CORPUSCULAR HGB CONC 33.2 g/dL (33.2-36.2); MEAN PLATELET VOLUME 8.5 fL (7.4-10.4); MONOCYTES % (AUTO) 12 % (2-9); NEUTROPHILS % (AUTO) 70 % (42-75); PLATELET COUNT 86 x10^3/uL (130-400); RED BLOOD COUNT 2.62 x10^6/uL (4.38-5.82); RED CELL DISTRIBUTION WIDTH 20.7 % (9.4-14.8)
[2021-05-23 05:20] LABS: ALANINE AMINOTRANSFERASE 22 U/L (12-78); ANION GAP 3 mmol/L (5-15); CALCIUM 8.1 mg/dL (8.5-10.1); CHLORIDE 105 mmol/L (98-107)
[2021-05-23 05:23] LABS: ALKALINE PHOSPHATASE 56 U/L (45-117); CREATININE 0.65 mg/dL (0.7-1.3); TOTAL PROTEIN 6.4 g/dL (6.4-8.2)
[2021-05-23] MEDS: CEFTRIAXONE 2 GM in DEXTROSE 5% 50 ML IVPB SCH (07:24)
[2021-05-23] MEDS: PHYTONADIONE 10 MG/ML, 1ML SQ SCH (07:24)
[2021-05-23 07:41] VITALS: BP 130/82
[2021-05-23] MEDS ORDERED: PANTOPRAZOLE 40 MG IV IVPush SCH (09:00)
[2021-05-23] MEDS ORDERED: OCTREOTIDE 50 MCG/ML, 1ML (0.05MG/ML) SQ SCH (09:00)
[2021-05-23] MEDS ORDERED: PROPOFOL 50 ML ONE (13:40)
[2021-05-23] MEDS ORDERED: CHLORHEXIDINE 15 ML UDC ONE (14:00)
[2021-05-23] MEDS ORDERED: ACETAMINOPHEN 325 MG TABLET ONE (16:20)
[2021-05-23] MEDS: ACETAMINOPHEN 325 MG TABLET PO PRN ×2 (16:24→22:29)
[2021-05-23] MEDS ORDERED: OCTREOTIDE 500 MCG in SODIUM CHLORIDE 0.9% 99 ML IV SCH (17:00)
[2021-05-23] MEDS: PANTOPRAZOLE 80 MG in SODIUM CHLORIDE 0.9% 100 ML IV SCH (17:55)
[2021-05-23 19:25] VITALS: BP 134/78
[2021-05-24 02:00] VITALS: BP 127/72
[2021-05-24] MEDS: PANTOPRAZOLE 80 MG in SODIUM CHLORIDE 0.9% 100 ML IV SCH ×3 (03:55→23:11)
[2021-05-24] MEDS: ACETAMINOPHEN 325 MG TABLET PO PRN (04:34)
[2021-05-24 07:39] VITALS: BP 143/82
[2021-05-24] MEDS: OXYcodone/APAP 10/325MG TABLET PO PRN ×3 (07:55→21:35)
[2021-05-24] MEDS: CEFTRIAXONE 2 GM in DEXTROSE 5% 50 ML IVPB SCH (09:33)
[2021-05-24] MEDS: PHYTONADIONE 10 MG/ML, 1ML SQ SCH (09:33)
[2021-05-24] MEDS: OCTREOTIDE 500 MCG in SODIUM CHLORIDE 0.9% 99 ML IV SCH (09:33)
[2021-05-24] MEDS: ONDANSETRON 2MG/ML, 2ML IV PRN ×2 (10:42→21:35)
[2021-05-24 11:39] LABS: BASOPHILS % (AUTO) 0 % (0-1); EOSINOPHILS % (AUTO) 3 % (1-7); LYMPHOCYTES % (AUTO) 12 % (22-44); MEAN CORPUSCULAR HEMOGLOBIN 27.5 pg (27.5-34.5); MEAN CORPUSCULAR HGB CONC 32.9 g/dL (33.2-36.2); MEAN PLATELET VOLUME 8.2 fL (7.4-10.4); MONOCYTES % (AUTO) 11 % (2-9); NEUTROPHILS % (AUTO) 73 % (42-75); PLATELET COUNT 94 x10^3/uL (130-400); RED CELL DISTRIBUTION WIDTH 20.6 % (9.4-14.8)
[2021-05-24 11:45] LABS: ALANINE AMINOTRANSFERASE 19 U/L (12-78); ALBUMIN 3.1 g/dL (3.4-5.0); ANION GAP 6 mmol/L (5-15); CALCIUM 8.4 mg/dL (8.5-10.1); CHLORIDE 105 mmol/L (98-107)
[2021-05-24 11:47] LABS: CREATININE 0.68 mg/dL (0.7-1.3)
[2021-05-24 11:48] LABS: ALKALINE PHOSPHATASE 60 U/L (45-117); BILIRUBIN,TOTAL 1.6 mg/dL (0.2-1.0); TOTAL PROTEIN 6.6 g/dL (6.4-8.2)
[2021-05-24 12:56] VITALS: BP 121/71
[2021-05-24 20:00] VITALS: BP 132/81
[2021-05-25 01:57] VITALS: BP 126/83
[2021-05-25] MEDS: OXYcodone/APAP 10/325MG TABLET PO PRN ×4 (03:41→22:52)
[2021-05-25] MEDS: OCTREOTIDE 500 MCG in SODIUM CHLORIDE 0.9% 99 ML IV SCH (05:36)
[2021-05-25 06:01] LABS: BASOPHILS % (AUTO) 1 % (0-1); EOSINOPHILS % (AUTO) 5 % (1-7); LYMPHOCYTES % (AUTO) 13 % (22-44); MEAN CORPUSCULAR HEMOGLOBIN 27.7 pg (27.5-34.5); MEAN CORPUSCULAR HGB CONC 32.5 g/dL (33.2-36.2); MEAN PLATELET VOLUME 7.9 fL (7.4-10.4); MONOCYTES % (AUTO) 13 % (2-9); NEUTROPHILS % (AUTO) 69 % (42-75); PLATELET COUNT 78 x10^3/uL (130-400); RED BLOOD COUNT 2.74 x10^6/uL (4.38-5.82); RED CELL DISTRIBUTION WIDTH 21.8 % (9.4-14.8)
[2021-05-25 06:15] LABS: CHLORIDE 102 mmol/L (98-107)
[2021-05-25 06:21] LABS: ALANINE AMINOTRANSFERASE 22 U/L (12-78); ALBUMIN 2.8 g/dL (3.4-5.0); ALKALINE PHOSPHATASE 58 U/L (45-117); ANION GAP 5 mmol/L (5-15); BILIRUBIN,TOTAL 1.5 mg/dL (0.2-1.0); CALCIUM 8.1 mg/dL (8.5-10.1); CREATININE 0.61 mg/dL (0.7-1.3); TOTAL PROTEIN 6.3 g/dL (6.4-8.2)
[2021-05-25 08:06] VITALS: BP 119/76
[2021-05-25] MEDS: CEFTRIAXONE 2 GM in DEXTROSE 5% 50 ML IVPB SCH (08:34)
[2021-05-25] MEDS ORDERED: FUROSEMIDE 20 MG TABLET PO SCH (09:00)
[2021-05-25] MEDS ORDERED: SPIRONOLACTONE 25 MG TABLET PO SCH (09:00)
[2021-05-25] MEDS: PANTOPRAZOLE 80 MG in SODIUM CHLORIDE 0.9% 100 ML IV SCH ×2 (09:43→18:01)
[2021-05-25 14:48] VITALS: BP 120/76
[2021-05-25] MEDS: FUROSEMIDE 20 MG TABLET PO SCH ×3 (18:01→23:05)
[2021-05-25 20:01] VITALS: BP 125/79
[2021-05-26 00:33] VITALS: BP 101/68
[2021-05-26] MEDS: OCTREOTIDE 500 MCG in SODIUM CHLORIDE 0.9% 99 ML IV SCH ×2 (02:28→23:06)
[2021-05-26] MEDS: PANTOPRAZOLE 80 MG in SODIUM CHLORIDE 0.9% 100 ML IV SCH (03:54)
[2021-05-26] MEDS: OXYcodone/APAP 10/325MG TABLET PO PRN ×3 (05:36→20:49)
[2021-05-26 06:00] LABS: BASOPHILS % (AUTO) 0 % (0-1); EOSINOPHILS % (AUTO) 3 % (1-7); LYMPHOCYTES % (AUTO) 10 % (22-44); MEAN CORPUSCULAR HEMOGLOBIN 27.9 pg (27.5-34.5); MEAN CORPUSCULAR HGB CONC 32.6 g/dL (33.2-36.2); MEAN PLATELET VOLUME 8.1 fL (7.4-10.4); MONOCYTES % (AUTO) 15 % (2-9); NEUTROPHILS % (AUTO) 71 % (42-75); PLATELET COUNT 91 x10^3/uL (130-400); RED BLOOD COUNT 2.89 x10^6/uL (4.38-5.82); RED CELL DISTRIBUTION WIDTH 22.3 % (9.4-14.8)
[2021-05-26 06:37] LABS: CHLORIDE 98 mmol/L (98-107)
[2021-05-26 07:09] LABS: ALANINE AMINOTRANSFERASE 21 U/L (12-78); ALBUMIN 2.9 g/dL (3.4-5.0); ALKALINE PHOSPHATASE 64 U/L (45-117); ANION GAP 6 mmol/L (5-15); BILIRUBIN,TOTAL 1.6 mg/dL (0.2-1.0); CALCIUM 7.8 mg/dL (8.5-10.1); CREATININE 0.65 mg/dL (0.7-1.3); TOTAL PROTEIN 6.3 g/dL (6.4-8.2)
[2021-05-26 07:30] VITALS: BP 107/68
[2021-05-26] MEDS: FUROSEMIDE 20 MG TABLET PO SCH ×2 (09:11→20:49)
[2021-05-26] MEDS: CEFTRIAXONE 2 GM in DEXTROSE 5% 50 ML IVPB SCH (09:11)
[2021-05-26] MEDS: OMEPRAZOLE 20 MG CAPSULE.DR PO SCH ×2 (09:11→16:35)
[2021-05-26] MEDS: SPIRONOLACTONE 50 MG TABLET PO SCH (09:11)
[2021-05-26 13:59] VITALS: BP 124/79
[2021-05-26 20:44] VITALS: BP 124/76
[2021-05-26 23:41] VITALS: BP 122/79
[2021-05-27] VITALS: BP 122/79
[2021-05-27 05:37] LABS: BASOPHILS % (AUTO) 0 % (0-1); EOSINOPHILS % (AUTO) 3 % (1-7); LYMPHOCYTES % (AUTO) 12 % (22-44); MEAN CORPUSCULAR HEMOGLOBIN 27.9 pg (27.5-34.5); MEAN CORPUSCULAR HGB CONC 32.6 g/dL (33.2-36.2); MEAN PLATELET VOLUME 8.4 fL (7.4-10.4); MONOCYTES % (AUTO) 17 % (2-9); NEUTROPHILS % (AUTO) 68 % (42-75); PLATELET COUNT 96 x10^3/uL (130-400); RED BLOOD COUNT 2.87 x10^6/uL (4.38-5.82); RED CELL DISTRIBUTION WIDTH 22.3 % (9.4-14.8)
[2021-05-27 05:42] LABS: ALANINE AMINOTRANSFERASE 21 U/L (12-78); ALBUMIN 2.8 g/dL (3.4-5.0); ANION GAP 4 mmol/L (5-15); CALCIUM 8.1 mg/dL (8.5-10.1); CHLORIDE 100 mmol/L (98-107)
[2021-05-27 05:44] LABS: ALKALINE PHOSPHATASE 66 U/L (45-117); BILIRUBIN,TOTAL 1.5 mg/dL (0.2-1.0); CREATININE 0.72 mg/dL (0.7-1.3); TOTAL PROTEIN 6.5 g/dL (6.4-8.2)
[2021-05-27] MEDS: OXYcodone/APAP 10/325MG TABLET PO PRN (05:51)
[2021-05-27] MEDS: OMEPRAZOLE 20 MG CAPSULE.DR PO SCH (05:51)
[2021-05-27 08:09] VITALS: BP 118/74
[2021-05-27] MEDS: FUROSEMIDE 20 MG TABLET PO SCH (08:28)
[2021-05-27] MEDS: SPIRONOLACTONE 50 MG TABLET PO SCH (08:29)
[2021-05-27] MEDS: CEFTRIAXONE 2 GM in DEXTROSE 5% 50 ML IVPB SCH (08:30)
[2021-05-27] MEDS ORDERED: FURO20TA3 PO (14:04)
[2021-05-27] MEDS ORDERED: SPIR50TA PO (14:04)
[2021-05-27] MEDS ORDERED: OMEP-110 PO (14:04)
== END 2021-05-27 15:51 | disposition home or self-care (01) | DRG 432 ==
LOC: ED 01:00 → EDIP 03:09 → CCU 04:57 → 4WST 18:05
PROVIDERS: ADMIT Internal Medicine; ATTEND Internal Medicine
PROC: 0W9G3ZZ Drainage of Peritoneal Cavity, Percutaneous Approach (ICD-10-PCS; 2021-05-22)
PROC: 30233N1 Transfusion of Nonautologous Red Blood Cells into Peripheral Vein, Percutaneous Approach (ICD-10-PCS; 2021-05-22)
PROC: 06L38CZ Occlusion of Esophageal Vein with Extraluminal Device, Via Natural or Artificial Opening Endoscopic (ICD-10-PCS; principal; 2021-05-23 14:00)
DX: K70.31 Alcoholic cirrhosis of liver with ascites (principal); K29.71 Gastritis, unspecified, with bleeding; I85.11 Secondary esophageal varices with bleeding; Z68.41 Body mass index [BMI] 40.0-44.9, adult; K76.6 Portal hypertension; D62 Acute posthemorrhagic anemia; E11.9 Type 2 diabetes mellitus without complications; E66.01 Morbid (severe) obesity due to excess calories; F10.10 Alcohol abuse, uncomplicated; G47.30 Sleep apnea, unspecified; K31.89 Other diseases of stomach and duodenum; I10 Essential (primary) hypertension; I48.91 Unspecified atrial fibrillation; Z20.822 Contact with and (suspected) exposure to COVID-19; Z91.19 Patient's noncompliance with other medical treatment and regimen; Z91.041 Radiographic dye allergy status
CPT/HCPCS: 36415; 82042; 82945; 89051; 96365; 96375; 99291; J3490; 36430; 49083; 80053; 82140; 83605; 83690; 84157; 85014; 85018; 85025; 85610; 85730; 86850; 86900; 86923; 87070; 87081; 87205; 87635; 93005; G0378; J0696; J2354; J2405; J2704; J3430; P9047; C9113; P9016